=== PATIENT | male | born 1965 | race Caucasian/White ===

== ENCOUNTER 2019-02-03 11:27 | Inpatient (IN) | payer OTHER ==
[2019-02-03] MEDS ORDERED: NITROGLYCERIN SL TABS 0.4 MG TAB SUBLINGUAL STA ×2 (11:52)
[2019-02-03] MEDS ORDERED: NITROGLYCERIN OINT 1 INCH/GM PACKET TOPICAL STA (11:52)
--- NOTE | 2019-02-03 11:55 | ED ---
General Adult HPI - General Chief complaint: Chest Pain Stated complaint: Chest pain Time Seen by Provider: 02/03/19 11:35 Source: patient, EMS, RN notes reviewed Mode of arrival: EMS Limitations: no limitations - History of Present Illness Initial comments: This is a 53-year-old male with a past medical history significant for hypertension and a family history of heart disease. Patient states over the last months she's noticed she's been a little bit more short of breath but over the last week even walking to the mailbox makes him short of breath. Patient states he woke up today with some significant chest tightness radiating to his right arm. He was also short of breath at that time. Patient states that lasted for about 2 hours and then it is gotten considerably better but not completely gone away. Patient denies any recent fever chills or cough. Patient denies any palpitations. Patient denies any lightheadedness dizziness or near s yncopal episode. Patient denies headache patient denies numbness weakness. Patient denies any abdominal pain. Patient denies nausea vomiting diarrhea. Patient denies any calf pain or leg swelling. Patient denies any recent travel trips or long rides in a car. - Related Data Allergies Allergy/AdvReac Type Severity Reaction Status Date / Time No Known Allergies Allergy Verified 02/03/19 11:40 Review of Systems ROS Statement: Those systems with pertinent positive or pertinent negative responses have been documented in the HPI. ROS Other: All systems not noted in ROS Statement are negative. Past Medical History Past Medical History: Hypertension History of Any Multi-Drug Resistant Organisms: None Reported Past Surgical History: Tonsillectomy Additional Past Surgical History / Comment(s): "U triple P" for sleep apnea Past Psychological History: No Psychological Hx Reported Smoking Status: Never smoker Past Alcohol Use History: Occasional Past Drug Use History: None Reported General Exam - General Exam Comments Initial Comments: GENERAL: Patient is well-developed and well-nourished. Patient is nontoxic and well- hydrated and is in mild distress. ENT: Neck is soft and supple. No significant lymphadenopathy is noted. Oropharynx is clear. Moist mucous membranes. Neck has full range of motion without eliciting any pain. EYES: The sclera were anicteric and conjunctiva were pink and moist. Extraocular movements were intact and pupils were equal round and reactive to light. Eyelids were unremarkable. PULMONARY: Unlabored respirations. Good breath sounds bilaterally. No audible rales rhonchi or wheezing was noted. CARDIOVASCULAR: There is a regular rate and rhythm without any murmurs gallops or rubs. ABDOMEN: Soft and nontender with normal bowel sounds. SKIN: Skin is clear with no lesions or rashes and otherwise unremarkable. NEUROLOGIC: Patient is alert and oriented x3. Cranial nerves II through XII are grossly intact. Motor and sensory are also intact. Normal speech, volume and content. Symmetrical smile. MUSCULOSKELETAL: Normal extremities with adequate strength and full range of motion. No lower extremity swelling or edema. No calf tenderness. LYMPHATICS: No significant lymphadenopathy is noted PSYCHIATRIC: Normal psychiatric evaluation. Limitations: no limitations Course Vital Signs 02/03/19 02/03/19 02/03/19 11:34 11:37 11:45 Temperature 97.4 F L Pulse Rate 60 55 L Respiratory 16 11 L Rate Blood Pressure 179/112 179/112 O2 Sat by Pulse 97 98 98 Oximetry 02/03/19 02/03/19 12:00 12:15 Temperature Pulse Rate 65 70 Respiratory 13 16 Rate Blood Pressure 187/102 156/105 O2 Sat by Pulse 96 95 Oximetry Medical Decision Making - Medical Decision Making EKG shows sinus bradycardia 57 bpm AK interval is 164 QRS 76 QT interval 4:30 QTC is 426. Patient's EKG shows no ST segment elevation or depression or T wave abnormalities are noted. Patient states the nitroglycerin sublingual did help his chest pain and he is in no discomfort currently. I started heparin on the patient because of his symptoms. I spoke with Dr. see he agreed to admit the patient admitted the patient wrote admitting orders and consult cardiology. I continue the heparin and aspirin and Nitropaste on the floor. - Lab Data Result diagrams: 02/03/19 11:47 02/03/19 11:47 Lab Results 02/03/19 02/03/19 02/03/19 Range/Units 11:47 11:47 11:47 WBC 5.3 (3.8-10.6) k/uL RBC 5.03 (4.30-5.90) m/uL Hgb 16.3 (13.0-17.5) gm/dL Hct 48.1 (39.0-53.0) % MCV 95.7 (80.0-100.0) fL MCH 32.4 (25.0-35.0) pg MCHC 33.9 (31.0-37.0) g/dL RDW 12.9 (11.5-15.5) % Plt Count 246 (150-450) k/uL Neutrophils % 58 % Lymphocytes % 25 % Monocytes % 7 % Eosinophils % 7 % Basophils % 1 % Neutrophils # 3.1 (1.3-7.7) k/uL Lymphocytes # 1.3 (1.0-4.8) k/uL Monocytes # 0.4 (0-1.0) k/uL Eosinophils # 0.4 (0-0.7) k/uL Basophils # 0.1 (0-0.2) k/uL PT 10.3 (9.0-12.0) sec INR 1.0 (<1.2) APTT 25.3 (22.0-30.0) sec D-Dimer 0.23 (<0.60) mg/L FEU Sodium 140 (137-145) mmol/L Potassium 4.1 (3.5-5.1) mmol/L Chloride 107 (98-107) mmol/L Carbon Dioxide 23 (22-30) mmol/L Anion Gap 10 mmol/L BUN 12 (9-20) mg/dL Creatinine 0.75 (0.66-1.25) mg/dL Est GFR (CKD-EPI)AfAm >90 (>60 ml/min/1.73 sqM) Est GFR (CKD-EPI)NonAf >90 (>60 ml/min/1.73 sqM) Glucose 118 H (74-99) mg/dL Calcium 9.1 (8.4-10.2) mg/dL Magnesium 2.2 (1.6-2.3) mg/dL Total Bilirubin 0.9 (0.2-1.3) mg/dL AST 42 (17-59) U/L ALT 79 H (21-72) U/L Alkaline Phosphatase 64 (38-126) U/L Troponin I (0.000-0.034) ng/mL NT-Pro-B Natriuret Pep pg/mL Total Protein 6.8 (6.3-8.2) g/dL Albumin 4.7 (3.5-5.0) g/dL 06/13/19 06/13/19 Range/Units 11:47 11:47 WBC (3.8-10.6) k/uL RBC (4.30-5.90) m/uL Hgb (13.0-17.5) gm/dL Hct (39.0-53.0) % MCV (80.0-100.0) fL MCH (25.0-35.0) pg MCHC (31.0-37.0) g/dL RDW (11.5-15.5) % Plt Count (150-450) k/uL Neutrophils % % Lymphocytes % % Monocytes % % Eosinophils % % Basophils % % Neutrophils # (1.3-7.7) k/uL Lymphocytes # (1.0-4.8) k/uL Monocytes # (0-1.0) k/uL Eosinophils # (0-0.7) k/uL Basophils # (0-0.2) k/uL PT (9.0-12.0) sec INR (<1.2) APTT (22.0-30.0) sec D-Dimer (<0.60) mg/L FEU Sodium (137-145) mmol/L Potassium (3.5-5.1) mmol/L Chloride (98-107) mmol/L Carbon Dioxide (22-30) mmol/L Anion Gap mmol/L BUN (9-20) mg/dL Creatinine (0.66-1.25) mg/dL Est GFR (CKD-EPI)AfAm (>60 ml/min/1.73 sqM) Est GFR (CKD-EPI)NonAf (>60 ml/min/1.73 sqM) Glucose (74-99) mg/dL Calcium (8.4-10.2) mg/dL Magnesium (1.6-2.3) mg/dL Total Bilirubin (0.2-1.3) mg/dL AST (17-59) U/L ALT (21-72) U/L Alkaline Phosphatase (38-126) U/L Troponin I <0.012 (0.000-0.034) ng/mL NT-Pro-B Natriuret Pep 48 pg/mL Total Protein (6.3-8.2) g/dL Albumin (3.5-5.0) g/dL Critical Care Time Critical Care Time: Yes Total Critical Care Time: 35 Disposition Clinical Impression: Hypertensive urgency Disposition: ADMITTED IP TO THIS HOSP Referrals: [facility] [Primary Care Provider] - 1-2 days Time of Disposition: 13:05
[2019-02-03 12:07] LABS: Basophils # (A) 0.1 k/uL (0-0.2); Basophils % (A) 1 %; Eosinophils # (A) 0.4 k/uL (0-0.7); Eosinophils % (A) 7 %; HCT 48.1 % (39.0-53.0); HGB 16.3 gm/dL (13.0-17.5); Lymphocytes # (A) 1.3 k/uL (1.0-4.8); Lymphocytes % (A) 25 %; MCH 32.4 pg (25.0-35.0); MCHC 33.9 g/dL (31.0-37.0); MCV 95.7 fL (80.0-100.0); Mean Platelet Volume 7.5; Monocytes # (A) 0.4 k/uL (0-1.0); Monocytes % (A) 7 %; Neutrophils # (A) 3.1 k/uL (1.3-7.7); Neutrophils % (A) 58 %; Platelet Count 246 k/uL (150-450); RBC 5.03 m/uL (4.30-5.90); RDW 12.9 % (11.5-15.5); WBC 5.3 k/uL (3.8-10.6)
[2019-02-03 12:21] LABS: D-Dimer 0.23 mg/L FEU (<0.60); Partial Thromboplastin Time 25.3 sec (22.0-30.0); Prothrombin Time 10.3 sec (9.0-12.0)
[2019-02-03 12:29] LABS: ALT 79 U/L (21-72); AST 42 U/L (17-59); African American GFR (CKD) >90 (>60 ml/min/1.73 sqM); Albumin 4.7 g/dL (3.5-5.0); Alkaline Phosphatase 64 U/L (38-126); Anion Gap 10 mmol/L; Blood Urea Nitrogen 12 mg/dL (9-20); Calcium 9.1 mg/dL (8.4-10.2); Carbon Dioxide 23 mmol/L (22-30); Chloride 107 mmol/L (98-107); Glucose 118 mg/dL (74-99); Magnesium 2.2 mg/dL (1.6-2.3); Potassium 4.1 mmol/L (3.5-5.1); Sodium 140 mmol/L (137-145); Total Bilirubin 0.9 mg/dL (0.2-1.3); Total Protein 6.8 g/dL (6.3-8.2)
--- NOTE | 2019-02-03 12:57 | XR ---
EXAMINATION TYPE: XR chest 2V DATE OF EXAM: 02/03/2019 COMPARISON: Chest x-ray July 26, 2015. HISTORY: Chest pain and shortness of breath. TECHNIQUE: Frontal and lateral views of the chest are obtained. FINDINGS: There is no focal air space opacity, pleural effusion, or pneumothorax seen. The cardiac silhouette size is stable and mildly enlarged. The osseous structures are intact. IMPRESSION: Mild cardiomegaly without acute pulmonary process. No significant change from prior.
[2019-02-03] MEDS ORDERED: HEPARIN SODIUM,PORCINE 5,000 UNIT/ML 1 ML VIAL IV ONE (13:04)
[2019-02-03] MEDS ORDERED: NITROGLYCERIN SL TABS 0.4 MG TAB SUBLINGUAL PRN (13:06)
[2019-02-03] MEDS: HEPARIN SOD,PORK IN 0.45% NACL 25,000 UNIT in 0.45% NACL 1 250ML.BAG IV SCH (13:32)
--- NOTE | 2019-02-03 15:44 | P.HPIM ---
History of Present Illness This is a pleasant 53 years old male with past medical history of hypertension, no diabetes. No previous history of heart disease. He never smoked. He presents because of dyspnea of 2 weeks duration associated with chest tightness, there this morning at 1:00 and 5:00 in the morning he has central chest pain that wakes him up from sleep, chest pain was nonradiating about it/10 in severity, now down to 3-4/10 after treatment. The pain is nonspecific. Patient denies history of smoking, drinks beers patient only had no illicit drugs. His father had cardiac disease at a similar age and his 50s On admission patient was hypertensive up to 187/1 or 2, currently blood pressure 126/83. Heart rate is 59-61. Saturating 94% on room air and his febrile. CBC and BMP were unremarkable, liver enzymes is only slightly elevated at ALT 79, rest of labs are unremarkable, he has negative troponin. EKG showing sinus bradycardia at 57 BPM with no significant ST-T changes. On admission patient got nitroglycerin ointment and sublingual nitroglycerin and he was started on heparin drip. Also patient was started on aspirin Review of Systems CONSTITUTIONAL: No fever, no malaise, no fatigue. HEENT: No recent visual problems or hearing problems. Denied any sore throat. CARDIOVASCULAR: No orthopnea, PND, no palpitations, no syncope. PULMONARY: No shortness of breath, no cough, no hemoptysis. GASTROINTESTINAL: No diarrhea, no nausea, no vomiting, no abdominal pain. Normoactive bowel sounds. NEUROLOGICAL: No headaches, no weakness, no numbness. HEMATOLOGICAL: Denies any bleeding or petechiae. GENITOURINARY: Denies any burning micturition, frequency, or urgency. MUSCULOSKELETAL/RHEUMATOLOGICAL: Denies any joint pain, swelling, or any muscle pain. ENDOCRINE: Denies any polyuria or polydipsia. Past Medical History Past Medical History: Hypertension History of Any Multi-Drug Resistant Organisms: None Reported Past Surgical History: Tonsillectomy Additional Past Surgical History / Comment(s): "U triple P" for sleep apnea Past Psychological History: No Psychological Hx Reported Smoking Status: Never smoker Past Alcohol Use History: Occasional Past Drug Use History: None Reported - Past Family History Mother Family Medical History: Cancer Additional Family Medical History / Comment(s): lung CA with thoracotomy Father Family Medical History: Myocardial Infarction (CA) Additional Family Medical History / Comment(s): passed in 2007 Medications and Allergies Home Medications Medication Instructions Recorded Confirmed Type Niacin 500 mg PO DAILY 02/03/19 02/03/19 History Vitamin B Complex 1 cap PO DAILY 02/03/19 02/03/19 History Allergies Allergy/AdvReac Type Severity Reaction Status Date / Time No Known Allergies Allergy Verified 02/03/19 13:35 Physical Exam Vitals: Vital Signs Temp Pulse Pulse Resp BP BP Pulse Ox 02/03/19 15:10 59 L 16 02/03/19 15:07 59 L 16 140/85 94 L 02/03/19 13:30 60 11 L 126/83 97 02/03/19 13:28 61 16 126/83 97 02/03/19 12:30 156/105 02/03/19 12:15 70 16 156/105 95 02/03/19 12:00 65 13 187/102 96 02/03/19 11:45 55 L 11 L 179/112 98 02/03/19 11:37 98 02/03/19 11:34 97.4 F L 60 16 179/112 97 Intake and Output 02/03/19 02/03/19 02/03/19 06:59 14:59 22:59 Other: Weight 113.398 kg GENERAL: The patient is alert and oriented x3, not in any acute distress. Well developed, well nourished. HEENT: Pupils are round and equally reacting to light. EOMI. No scleral icterus. No conjunctival pallor. Normocephalic, atraumatic. No pharyngeal erythema. No thyromegaly. CARDIOVASCULAR: S1 and S2 present. No murmurs, rubs, or gallops. PULMONARY: Chest is clear to auscultation, no wheezing or crackles. ABDOMEN: Soft, nontender, nondistended, normoactive bowel sounds. No palpable organomegaly. MUSCULOSKELETAL: No joint swelling or deformity. EXTREMITIES: No cyanosis, clubbing, or pedal edema. NEUROLOGICAL: Gross neurological examination did not reveal any focal deficits. SKIN: No rashes. Results CBC & Chem 7: 02/03/19 11:47 02/03/19 11:47 Labs: Abnormal Lab Results - Last 24 Hours (Table) 02/03/19 Range/Units 11:47 Glucose 118 H (74-99) mg/dL ALT 79 H (21-72) U/L Thrombosis Risk Factor Assmnt - Choose All That Apply Each Factor Represents 1 point: Age 41-60 years, Obesity (BMI >25) Each Risk Factor Represents 3 Points: Family history of DVT/PE Thrombosis Risk Factor Assessment Total Risk Factor Score: 5 Thrombosis Risk Factor Assessment Level: High Risk Assessment and Plan Assessment: Dyspnea and chest pain, possible unstable angina. Patient is on heparin drip Uncontrolled hypertension Family history of heart disease Mildly elevated liver enzymes Plan: This is a pleasant 53 years old male who presents with unstable angina. Continue with heparin drip. Serial troponins. Follow-up with cardiology consult. Labs and medication were reviewed.. Continue same treatment. Continue with symptomatic treatment. Resume home medication. Monitor lytes and vitals. DVT and GI prophylaxis. Further recommendations of the clinical course of the patient DVT prophylaxis: heparin GI Prophylaxis: Pepcid Prognosis is guarded
[2019-02-03] MEDS: NITROGLYCERIN OINT 1 INCH/GM PACKET TOPICAL SCH ×2 (17:15→23:09)
[2019-02-03] MEDS ORDERED: ONDANSETRON 4 MG/2 ML VIAL IVP PRN (18:27)
[2019-02-03] MEDS: FAMOTIDINE 20 MG/2 ML VIAL IV SCH (19:53)
[2019-02-04 03:25] LABS: Cholesterol 216 mg/dL (<200); HDL Cholesterol 45 mg/dL (40-60); LDL Cholesterol,Calculated 135 mg/dL (0-99); Triglycerides 179 mg/dL (<150)
[2019-02-04] MEDS: NITROGLYCERIN OINT 1 INCH/GM PACKET TOPICAL SCH ×3 (05:13→23:02)
[2019-02-04] MEDS: FAMOTIDINE 20 MG/2 ML VIAL IV SCH ×3 (08:01→20:35)
[2019-02-04] MEDS: ASPIRIN 325 MG TAB PO SCH (08:01)
[2019-02-04 08:21] LABS: Basophils # (A) 0.1 k/uL (0-0.2); Basophils % (A) 1 %; Eosinophils # (A) 0.4 k/uL (0-0.7); Eosinophils % (A) 6 %; HCT 49.2 % (39.0-53.0); HGB 16.2 gm/dL (13.0-17.5); Lymphocytes # (A) 1.3 k/uL (1.0-4.8); Lymphocytes % (A) 19 %; MCH 32.2 pg (25.0-35.0); MCHC 32.9 g/dL (31.0-37.0); MCV 97.9 fL (80.0-100.0); Mean Platelet Volume 7.3; Monocytes # (A) 0.4 k/uL (0-1.0); Monocytes % (A) 6 %; Neutrophils # (A) 4.6 k/uL (1.3-7.7); Neutrophils % (A) 67 %; Platelet Count 241 k/uL (150-450); RBC 5.02 m/uL (4.30-5.90); RDW 12.9 % (11.5-15.5); WBC 6.9 k/uL (3.8-10.6)
[2019-02-04 08:26] LABS: African American GFR (CKD) >90 (>60 ml/min/1.73 sqM); Anion Gap 7 mmol/L; Blood Urea Nitrogen 13 mg/dL (9-20); Calcium 9.3 mg/dL (8.4-10.2); Carbon Dioxide 26 mmol/L (22-30); Chloride 107 mmol/L (98-107); Glucose 125 mg/dL (74-99); Potassium 4.2 mmol/L (3.5-5.1); Sodium 140 mmol/L (137-145)
[2019-02-04] MEDS ORDERED: SODIUM CHLORIDE 0.9% IV ONE (09:12)
[2019-02-04] MEDS ORDERED: CAFFEINE CITRATE 60 MG/3 ML VIAL IV PRN (09:12)
[2019-02-04] MEDS ORDERED: DIPYRIDAMOLE IV ONE (09:12)
[2019-02-04] MEDS ORDERED: AMINOPHYLLINE 500 MG/20 ML VIAL IV PRN (09:12)
--- NOTE | 2019-02-04 12:16 | NM ---
EXAMINATION TYPE: NM stress persantine cardiolit DATE OF EXAM: 02/04/2019 COMPARISON: NONE HISTORY: Shortness of breath and chest pain TECHNIQUE: After the intravenous administration of 10.4 mCi Tc 99m Sestamibi - Cardiolite resting SP ECT images acquired 45 minutes post injection. The patient received 63 mg Persantine, 24.6 mCi Tc 99m Sestamibi - Stress images obtained 45 minutes post injection FINDINGS: Review of stress and rest SPECT images demonstrates decreased residual uptake along anterior wall, an terolateral left ventricle on stress as compared to rest images. Gated analysis shows normal wall mo tion with an estimated left ventricular ejection fraction of 59 %. IMPRESSION: Pharmacologically induced left ventricular myocardial ischemia.
[2019-02-04] MEDS: HEPARIN SOD,PORK IN 0.45% NACL 25,000 UNIT in 0.45% NACL 1 250ML.BAG IV SCH ×2 (13:39→16:41)
--- NOTE | 2019-02-04 14:14 | EST ---
EXERCISE STRESS AGE: 53 SEX: M HT: 72" WT: 243 PROTOCOL: Persantine Cardiolite Stress Test HEART RATE REST: 60 BLOOD PRESSURE REST: 156/96 MAXIMUM HEART RATE ACHIEVED: 87 MAXIMUM BLOOD PRESSURE: 181/89 85% MPHR: 141 100% MPHR: 166 INDICATIONS: Chest pain. CLINICAL INFORMATION: Baseline rhythm is sinus mechanism, rate of 60, normal axis and intervals, nonspecific ST-T wave changes. Baseline blood pressure 156/96 mmHg. Patient received an infusion of dipyridamole. Electrocardiograph monitoring revealed no evidence of diagnostic ischemic ST deviation. Cardiolite was injected per protocol. CONCLUSION: 1. Nondiagnostic electrocardiographic stress response to dipyridamole infusion with occasional premature ventricular contractions. 2. Nuclear images will be reported separately. MMODL / IJN: [id number] /
--- NOTE | 2019-02-04 14:34 | P.PN ---
Subjective This is a pleasant 53 years old male with past medical history of hypertension, no diabetes. No previous history of heart disease. He never smoked. He presents because of dyspnea of 2 weeks duration associated with chest tightness, there this morning at 1:00 and 5:00 in the morning he has central chest pain that wakes him up from sleep, chest pain was nonradiating about it/10 in severity, now down to 3-4/10 after treatment. The pain is nonspecific. Patient denies history of smoking, drinks beers patient only had no illicit drugs. His father had cardiac disease at a similar age and his 50s On admission patient was hypertensive up to 187/1 or 2, currently blood pressure 126/83. Heart rate is 59-61. Saturating 94% on room air and his febrile. CBC and BMP were unremarkable, liver enzymes is only slightly elevated at ALT 79, rest of labs are unremarkable, he has negative troponin. EKG showing sinus bradycardia at 57 BPM with no significant ST-T changes. On admission patient got nitroglycerin ointment and sublingual nitroglycerin and he was started on heparin drip. Also patient was started on aspirin 02/04/2019 Patient feels better as with no chest pain or dyspnea. No other complaint. Patient has been evaluated by cardiology team and he underwent echocardiogram and stress test. Stress test was nondiagnostic, However nuclear stress present in stress test showing pharmacologically interviewed left ventricular myocardial ischemia along the anterior wall and anterior lateral left ventricle. As per test his estimated ejection fraction is 59%. CBC and BMP were unremarkable. 3 cardiac enzymes and troponin were negative. Further recommendation as per cardiology team. Review of systems CONSTITUTIONAL: No fever, no malaise, no fatigue. HEENT: No recent visual problems or hearing problems. Denied any sore throat. CARDIOVASCULAR: No orthopnea, PND, no palpitations, no syncope. PULMONARY: No shortness of breath, no cough, no hemoptysis. GASTROINTESTINAL: No diarrhea, no nausea, no vomiting, no abdominal pain. Normoactive bowel sounds. NEUROLOGICAL: No headaches, no weakness, no numbness. HEMATOLOGICAL: Denies any bleeding or petechiae. GENITOURINARY: Denies any burning micturition, frequency, or urgency. MUSCULOSKELETAL/RHEUMATOLOGICAL: Denies any joint pain, swelling, or any muscle pain. ENDOCRINE: Denies any polyuria or polydipsia. Indication: Aspirin 325 mg, Pepcid 20 mg, heparin drip at 9.8 mL per hour, nitroglycerin 1 inch topical and Nitrostat 0.5 mg, Zofran 4 mg. Objective - Vital Signs Vital signs: Vital Signs Temp 98.4 F 02/04/19 07:56 Pulse 62 02/04/19 07:56 Resp 18 02/04/19 07:56 BP 156/97 02/04/19 07:56 Pulse Ox 97 02/04/19 07:56 Intake & Output 02/03/19 02/04/19 02/04/19 18:59 06:59 18:59 Intake Total 128.258 91.107 Balance 128.258 91.107 Weight 113.398 kg 110.6 kg 110.6 kg Intake: Intake, IV Titration 128.258 91.107 Amount Heparin Sod,Pork in 0.45% 128.258 91.107 NaCl 25,000 unit In 0.45 % NaCl 1 250ml.bag @ 8.7 UNITS/KG/HR 9.866 mls/hr IV .Q24H [facility] Rx#: [id number] Other: # Voids 1 - Exam GENERAL: The patient is alert and oriented x3, not in any acute distress. Well developed, well nourished. HEENT: Pupils are round and equally reacting to light. EOMI. No scleral icterus. No conjunctival pallor. Normocephalic, atraumatic. No pharyngeal erythema. No thyromegaly. CARDIOVASCULAR: S1 and S2 present. No murmurs, rubs, or gallops. PULMONARY: Chest is clear to auscultation, no wheezing or crackles. ABDOMEN: Soft, nontender, nondistended, normoactive bowel sounds. No palpable organomegaly. MUSCULOSKELETAL: No joint swelling or deformity. EXTREMITIES: No cyanosis, clubbing, or pedal edema. NEUROLOGICAL: Gross neurological examination did not reveal any focal deficits. SKIN: No rashes. - Labs CBC & Chem 7: 02/04/19 07:20 02/04/19 07:20 Labs: Abnormal Lab Results - Last 24 Hours (Table) 02/03/19 02/03/19 02/04/19 Range/Units 11:47 18:35 01:10 APTT 35.6 H 30.9 H (22.0-30.0) sec Glucose (74-99) mg/dL Triglycerides 179 H (<150) mg/dL Cholesterol 216 H (<200) mg/dL LDL Cholesterol, Calc 135 H (0-99) mg/dL 02/04/19 02/04/19 Range/Units 07:20 07:20 APTT 37.7 H (22.0-30.0) sec Glucose 125 H (74-99) mg/dL Triglycerides (<150) mg/dL Cholesterol (<200) mg/dL LDL Cholesterol, Calc (0-99) mg/dL Assessment and Plan Assessment: Dyspnea and chest pain, possible unstable angina. Stress test showing anterior wall and anterior lateral left ventricular ischemia Uncontrolled hypertension, improving Family history of heart disease Mildly elevated liver enzymes Plan: This is a pleasant 53 years old male who presents with unstable angina. Continue with heparin drip. Serial troponins. Follow-up with cardiology consult Recommendation. Labs and medication were reviewed.. Continue same treatment. Continue with symptomatic treatment. Resume home medication. Monitor lytes and vitals. DVT and GI prophylaxis. Further recommendations of the clinical course of the patient DVT prophylaxis: heparin GI Prophylaxis: Pepcid Prognosis is guarded
[2019-02-04] MEDS ORDERED: amLODIPine 5 MG TAB PO STA (16:59)
[2019-02-04] MEDS: METOPROLOL TARTRATE 25 MG TAB PO SCH (20:35)
[2019-02-04] MEDS: SODIUM CHLORIDE 0.9% 1,000 ML IV SCH (21:45)
[2019-02-05] MEDS: HEPARIN SOD,PORK IN 0.45% NACL 25,000 UNIT in 0.45% NACL 1 250ML.BAG IV SCH (01:09)
[2019-02-05] MEDS: NITROGLYCERIN OINT 1 INCH/GM PACKET TOPICAL SCH (06:10)
[2019-02-05] MEDS: METOPROLOL TARTRATE 25 MG TAB PO SCH ×2 (06:16→21:18)
[2019-02-05] MEDS: FAMOTIDINE 20 MG/2 ML VIAL IV SCH ×2 (06:16→21:18)
[2019-02-05] MEDS: ASPIRIN 325 MG TAB PO SCH (06:16)
[2019-02-05] MEDS: SODIUM CHLORIDE 0.9% 1,000 ML IV SCH (06:16)
[2019-02-05] MEDS ORDERED: IV FLUID CONTINUATION 1,000 ML IV ONE (09:00)
[2019-02-05] MEDS ORDERED: fentaNYL (PF) 50 MCG/ML 2 ML AMP ONE (09:07)
[2019-02-05] MEDS ORDERED: VERAPAMIL 2.5 MG/ML 2 ML AMP ONE (09:07)
[2019-02-05] MEDS ORDERED: fentaNYL (PF) 50 MCG/ML 2 ML AMP IVP ONE (09:19)
[2019-02-05] MEDS ORDERED: MIDAZOLAM (PF) 2 MG/2 ML VIAL IVP ONE (09:19)
[2019-02-05] MEDS ORDERED: LIDOCAINE 2% SYG (PF) 100 MG/5 ML MISCELLANE ONE (09:24)
[2019-02-05] MEDS ORDERED: HEPARIN SODIUM 1,000 UN/ML (10ML VL) ONE (09:26)
[2019-02-05] MEDS ORDERED: VERAPAMIL SYRINGE (5 MG/10 ML) INTRAARTER ONE (09:27)
[2019-02-05] MEDS ORDERED: HEPARIN SODIUM 1,000 UN/ML (10ML VL) IV ONE (09:27)
[2019-02-05] MEDS ORDERED: hydrALAZINE HCL 20 MG/ML 1 ML VIAL ONE (09:41)
[2019-02-05] MEDS ORDERED: PRASUGREL 10 MG TAB ONE (09:43)
[2019-02-05] MEDS ORDERED: hydrALAZINE HCL 20 MG/ML 1 ML VIAL IVP ONE (09:45)
[2019-02-05] MEDS ORDERED: PRASUGREL 10 MG TAB PO ONE (09:46)
[2019-02-05] MEDS ORDERED: BIVALIRUDIN BOLUS 250 MG/50 ML IV ONE (09:52)
[2019-02-05] MEDS ORDERED: BIVALIRUDIN 250 MG in SODIUM CHLORIDE 0.9% 50 ML IV ONE (09:53)
[2019-02-05] MEDS ORDERED: IOPAMIDOL-370 125ML BTL INJ ONE (10:02)
[2019-02-05] MEDS: NITROGLYCERIN 1000MCG/10ML SYRINGE INTRACORON ONE ×2 (10:06→10:16)
[2019-02-05] MEDS ORDERED: IOPAMIDOL-370 100ML BTL INJ ONE (10:25)
[2019-02-05] MEDS ORDERED: MAG HYDROX/AL HYDROX/SIMETH 30 ML CUP PO PRN (10:34)
[2019-02-05] MEDS ORDERED: ATROPINE SULFATE 0.1 MG/ML 10ML SYRINGE IV PRN (10:34)
[2019-02-05] MEDS ORDERED: RX INFO: IV CONTRAST WAS GIVEN 1 EACH MISC MISCELLANE PRN (10:34)
[2019-02-05] MEDS ORDERED: ZOLPIDEM 5 MG TAB PO PRN (10:34)
[2019-02-05] MEDS ORDERED: NITROGLYCERIN SL TABS 0.4 MG TAB SUBLINGUAL PRN (10:34)
[2019-02-05] MEDS ORDERED: SODIUM CHLORIDE 0.9% 1,000 ML IV SCH (10:45)
--- NOTE | 2019-02-05 11:08 | PTCA ---
PERCUTANEOUSTRANS CORORONARY ANGIOGRAPHY Mr. Holman is a 53-year-old male who presented with symptoms of unstable angina, was evaluated by Dr. Suggs, underwent a stress test that revealed evidence of inducible ischemia involving the inferolateral wall. In view of that, he underwent cardiac catheterization, was found to have critical stenosis involving the first obtuse marginal branch in the mid left circumflex as well as the first diagonal branch. In view of that, recommendation was made regarding angioplasty and stenting. The procedure, its risks and complications were discussed with the patient, who was in full understanding and agreement. PROCEDURE DESCRIPTION: A 6-Armenian FL3.5 guiding catheter was introduced in the system. After cannulating the left main, a 0.014 balanced medium-weight J-wire was advanced into the mid left circumflex first obtuse marginal branch and positioned in the distal vessel. Subsequently a 3.5 x 15 mm Xience Marisabel stent was advanced, deployed and post dilated at 14 atmospheres. Following that, the balloon was removed and another wire was advanced in the first diagonal branch and positioned in the distal diagonal branch. Subsequently a 2.25 x 12 mm Trek balloon was advanced. One inflation at 8 atmospheres was done. Following that, the balloon was removed and a 2.5 x 15 mm Xience Marisabel stent was deployed and post dilated at 14 atmospheres. After the last inflation, after appropriate wait, the balloon and the guidewire were withdrawn back into the guiding catheter. Images were obtained and repeated. Those images revealed stable and successful stenting. At that point, the guiding catheter, the balloon and the guidewire wire were removed. The sheath was removed. Hemostasis was obtained with deployment of a TR band. There was no immediate complication. Of note, the patient had chest discomfort and EKG changes with inflation that resolved at the end of the procedure. He received Angiomax per protocol as well as oral loading dose of Effient. RESULTS: 1. Successful stenting of the first obtuse marginal branch and mid left circumflex with reduction of stenosis from 90% to 0%. 2. Successful stenting of the first diagonal branch with reduction of stenosis from 99% to 0%. RECOMMENDATIONS: Patient will be continued on aspirin, Effient and statin. The importance of dual antiplatelet treatment was discussed with the patient and his family, and they are in full understanding and agreement. Duration of procedure was 29 minutes. MMODL / IJN: [id number] /
--- NOTE | 2019-02-05 16:53 | P.PN ---
Subjective Progress Note Date: 02/05/19 53 years old male with past medical history of hypertension, no diabetes. No previous history of heart disease. He never smoked. He presents because of dyspnea of 2 weeks duration associated with chest tightness, there this morning at 1:00 and 5:00 in the morning he has central chest pain that wakes him up from sleep, chest pain was nonradiating about it/10 in severity, now down to 3-4/10 after treatment. The pain is nonspecific. Patient denies history of smoking, drinks beers patient only had no illicit drugs. His father had cardiac disease at a similar age and his 50s 02/05/2019 Patient is seen and evaluated in room at bedside; denies any specific complaints Patient is status post cardiac catheterization with successful stenting of the first 2 was marginal branch and mid left circumflex with reduction of stenosis from 90-0%; stenting of first diagonal branch with reduction of stenosis from 99-0% Cardiology is recommending to continue aspirin, statins and Effient Objective - Vital Signs Vital signs: Vital Signs Temp 97.7 F 02/05/19 04:10 Pulse 57 L 02/05/19 10:49 Resp 18 02/05/19 10:49 BP 152/89 02/05/19 10:49 Pulse Ox 96 02/05/19 10:49 Intake & Output 02/04/19 02/05/19 02/05/19 18:59 06:59 18:59 Intake Total 241.742 279.175 411.4 Output Total 500 Balance 241.742 279.175 -88.6 Weight 110.6 kg 109.7 kg Intake: IV 287 Intake, IV Titration 121.742 159.175 124.4 Amount Heparin Sod,Pork in 0.45% 121.742 159.175 124.4 NaCl 25,000 unit In 0.45 % NaCl 1 250ml.bag @ 8.7 UNITS/KG/HR 9.866 mls/hr IV .Q24H CATHERINE Rx#: [id number] Oral 120 120 Output: Urine 500 Other: Voiding Method Toilet # Voids 1 - Exam - Constitutional General appearance: Present: average body habitus, cooperative, no acute distress - EENT Eyes: Present: anicteric sclerae, EOMI, PERRLA, normal appearance ENT: Present: hearing grossly normal, normal oropharynx Ears: bilateral: normal - Neck Neck: Present: normal ROM. Absent: lymphadenopathy, rigidity, thyromegaly Carotids: negative: bruit present Thyroid: bilateral: normal size, negative: enlarged, nodule - Respiratory Respiratory: bilateral: CTA, negative: rales, rhonchi, wheezing - Cardiovascular Rhythm: regular Heart sounds: normal: S1, S2 Abnormal Heart Sounds: Absent: systolic murmur, diastolic murmur - Gastrointestinal General gastrointestinal: Present: normal bowel sounds, soft. Absent: distended, organomegaly, tenderness - Genitourinary Genitourinary Comment(s): deferred - Integumentary Integumentary: Present: normal turgor. Absent: jaundiced, rash, ulcer - Neurologic Neurologic: Present: CNII-XII intact. Absent: focal deficits - Musculoskeletal Musculoskeletal: Present: gait normal, strength equal bilaterally - Psychiatric Psychiatric: Present: A&O x's 3, appropriate affect, intact judgment & insight - Labs CBC & Chem 7: 02/04/19 07:20 02/04/19 07:20 Labs: Abnormal Lab Results - Last 24 Hours (Table) 02/04/19 02/04/19 02/05/19 Range/Units 14:54 22:00 06:21 APTT 35.1 H 62.2 H 88.9 H (22.0-30.0) sec Assessment and Plan Assessment: Dyspnea and chest pain, possible unstable angina. Stress test showing anterior wall and anterior lateral left ventricular ischemia Uncontrolled hypertension, improving Family history of heart disease Mildly elevated liver enzymes Plan: This is a pleasant 53 years old male who presents with unstable angina. Continue with heparin drip. Serial troponins. Follow-up with cardiology consult Recommendation. Labs and medication were reviewed.. Continue same treatment. Continue with symptomatic treatment. Resume home medication. Monitor lytes and vitals. DVT and GI prophylaxis. Further recommendations of the clinical course of the patient DVT prophylaxis: heparin GI Prophylaxis: Pepcid Time with Patient: Greater than 30
--- NOTE | 2019-02-05 18:14 | P.CARDCATH ---
Date of Procedure: 02/05/19 Description of Procedure: HISTORY: This is a 53-year-old gentleman who was admitted to the hospital with exertional shortness of breath and chest pains. Nuclear stress test was size to ischemia involving the anterior and also circumflex distribution. Patient is advised to have a cardiac catheterization CONSENT:I have discussed the risks, benefits and alternative therapies for the above-mentioned procedure and for both sedation/analgesia as well as necessary blood product administration, if indicated, as they pertain to this patient. The patient has indicated understanding and acceptance of the risks and procedures discussed. PROCEDURE: Patient was brought to the lab in a fasting state. Patient was given some IV sedation. The right wrist is infiltrated with lidocaine and right radial artery was entered using Seldinger technique. A 6-Kyrgyz catheter was left in place and selective coronary arteriography was performed. Patient tolerated the procedure well. He had been was applied for hemostasis. Patient went on to have stent placement of the diagonal and also circumflex by Dr. El worrell. Conscious Sedation: Versed 1mg Fentanyl 50 g Duration 20 minutes HEMODYNAMICS: Aortic pressure was about 170 /90. Left ankle end-diastolic pressure is about 20-25. There was no gradient across the aortic valve SELECTIVE CORONARY ARTERIOGRAPHY: LEFT MAIN: This is normal length and free of occlusive disease. THE LEFT ANTERIOR DESCENDING CORONARY ARTERY: This is a good caliber vessel giving rise to moderate caliber diagonal branch. The LAD has mild diffuse disease. The diagonal branch has a critical 99% stenosis. THE LEFT CIRCUMFLEX AND IS CORONARY ARTERY: This is a good caliber vessel giving rise good-sized OM branch. The OM branch has about 80-90% stenosis. There are small OM are intermediate branch is. One of the intermediate branch has about 90% stenosis but small in caliber THE RIGHT CORONARY ARTERY: This is a dominant vessel and good in size, giving rise to good-sized PDA and PLV. This vessel is free of any significant focal lesions LEFT VENTRICULOGRAPHY: Not performed FINAL IMPRESSION: Critical lesion involving the diagonal branch and also OM branch of the circumflex. There is critical lesion in the small intermediate branch is PLAN: Stent placement of the diagonal and the OM branch of circumflex PROGNOSIS:. Fair
[2019-02-05] MEDS: LISINOPRIL 5 MG TAB PO SCH (21:19)
[2019-02-06 07:07] LABS: Basophils # (A) 0.1 k/uL (0-0.2); Basophils % (A) 1 %; Eosinophils # (A) 0.4 k/uL (0-0.7); Eosinophils % (A) 5 %; HCT 49.4 % (39.0-53.0); HGB 16.4 gm/dL (13.0-17.5); Lymphocytes # (A) 1.3 k/uL (1.0-4.8); Lymphocytes % (A) 17 %; MCH 32.2 pg (25.0-35.0); MCHC 33.2 g/dL (31.0-37.0); MCV 96.7 fL (80.0-100.0); Mean Platelet Volume 6.8; Monocytes # (A) 0.4 k/uL (0-1.0); Monocytes % (A) 6 %; Neutrophils # (A) 5.2 k/uL (1.3-7.7); Neutrophils % (A) 69 %; Platelet Count 266 k/uL (150-450); RBC 5.11 m/uL (4.30-5.90); RDW 12.9 % (11.5-15.5); WBC 7.6 k/uL (3.8-10.6)
[2019-02-06 07:14] LABS: African American GFR (CKD) >90 (>60 ml/min/1.73 sqM); Anion Gap 9 mmol/L; Blood Urea Nitrogen 15 mg/dL (9-20); Calcium 9.6 mg/dL (8.4-10.2); Carbon Dioxide 22 mmol/L (22-30); Chloride 108 mmol/L (98-107); Glucose 119 mg/dL (74-99); Potassium 4.2 mmol/L (3.5-5.1); Sodium 139 mmol/L (137-145)
[2019-02-06] MEDS ORDERED: ATORVASTATIN 80 MG TAB PO SCH (09:00)
[2019-02-06] MEDS ORDERED: ASPIRIN 81 MG PO SCH (09:00)
[2019-02-06] MEDS: FAMOTIDINE 20 MG/2 ML VIAL IV SCH (09:21)
[2019-02-06] MEDS: LISINOPRIL 5 MG TAB PO SCH (09:21)
[2019-02-06] MEDS: METOPROLOL TARTRATE 25 MG TAB PO SCH (09:21)
[2019-02-06] MEDS ORDERED: PRASUGREL 10 MG TAB PO SCH (10:00)
[2019-02-06 10:12] VITALS: BP 161/89; PULSE 83; RESP 18; TEMP 98.2
[2019-02-06 10:20] VITALS: BMI 32.3
--- NOTE | 2019-02-06 12:33 | P.PN ---
Subjective Progress Note Date: 02/06/19 This patient is admitted to the hospital with symptoms size to focus and angina. Patient had a cardiac catheterization and was found to have critical lesion in the diagonal and also mid circumflex. Patient had stent placement of the both lesions. He does have a small intermediate branch that has significant disease but is small for intervention. Patient is feeling well. His puncture in the right wrist appear to be healing well. Lungs are clear. Heart is regular. His blood pressure is fluctuating. Patient could be discharged home. Follow-up in the office in one week Objective - Vital Signs Vital signs: Vital Signs Temp 98.2 F 02/06/19 09:21 Pulse 83 02/06/19 11:17 Resp 18 02/06/19 11:17 BP 161/89 02/06/19 09:21 Pulse Ox 99 02/06/19 09:21 Intake & Output 02/05/19 02/06/19 02/06/19 18:59 06:59 18:59 Intake Total 1851.4 720 Output Total 1500 550 Balance 351.4 170 Weight 108.4 kg 108.4 kg Intake: IV 287 Intake, IV Titration 1124.4 Amount Heparin Sod,Pork in 0.45% 124.4 NaCl 25,000 unit In 0.45 % NaCl 1 250ml.bag @ 8.7 UNITS/KG/HR 9.866 mls/hr IV .Q24H C[facility]INE Rx#: [id number] Sodium Chloride 0.9% 1, 1000 000 ml @ 100 mls/hr IV . Q10H C[facility]INE Rx#:[id number] Oral 440 720 Output: Urine 1500 550 Other: Voiding Method Toilet Toilet Toilet # Voids 1 1 1 # Bowel Movements 1 - Exam GENERAL EXAM: Patient is alert and oriented and doesn't appear to be in any acute distress HEENT: Normocephalic. Normal reaction of pupils, equal size, normal range of extraocular motion. No erythema or exudates in the throat. NECK: No masses, no nuchal rigidity. CHEST: No chest wall deformity. LUNGS: Equal air entry with no crackles or wheeze. HEART: S1 and S2 normal with no audible mumurs or gallops. Regular rhythm, femorals equal on both sides.. ABDOMEN: No hepatosplenomegaly, normal bowel sounds, no guarding or rigidity. SKIN: No rashes CENTRAL NERVOUS SYSTEM: No focal deficits. EXTREMITIES: No cyanosis, clubbing or edema. PUNCTURE SITE: The puncture in the right wrist seem to be healing well. Radial pulses bounding. - Labs CBC & Chem 7: 02/06/19 06:21 02/06/19 06:21 Labs: Abnormal Lab Results - Last 24 Hours (Table) 02/06/19 Range/Units 06:21 Chloride 108 H (98-107) mmol/L Glucose 119 H (74-99) mg/dL Assessment and Plan (1) Crescendo angina Status: Acute Code(s): I20.0 - UNSTABLE ANGINA SNOMED Code(s): 7902090 (2) Coronary artery disease Status: Acute Code(s): I25.10 - ATHSCL HEART DISEASE OF [place] CORONARY ARTERY W/O ANG PCTRS SNOMED Code(s): 10345450 Plan: Patient is currently doing well. Being discharged home. Follow-up in the office in one week
--- NOTE | 2019-02-07 09:24 | ECHOF ---
Referral Reason:Chest pain and cardiomyopathy MEASUREMENTS -------- HEIGHT: 180.3 cm WEIGHT: 110.2 kg BP: 156/97 IVSd: 1.3 cm (0.6 - 1.1) LVIDd: 4.4 cm (3.9 - 5.3) LVPWd: 1.3 cm (0.6 - 1.1) IVSs: 2.2 cm LVIDs: 2.0 cm LVPWs: 2.0 cm LAESV Index (A-L): 26.91 ml/m Ao Diam: 3.1 cm (2.0 - 3.7) AV Cusp: 2.0 cm (1.5 - 2.6) LA Diam: 3.8 cm (2.7 - 3.8) MV EXCURSION: 15.618 mm (> 18.000) MV EF SLOPE: 108 mm/s (70 - 150) EPSS: 0.1 cm MV E Barrera: 0.75 m/s MV DecT: 223 ms MV A Barrera: 0.52 m/s MV E/A Ratio: 1.44 RAP: 5.00 mmHg RVSP: 18.11 mmHg FINDINGS -------- Sinus rhythm. This was a technically adequate study. The left ventricular size is normal. There is mild concentric left ventricular hypertrophy. Overa ll left ventricular systolic function is normal with, an EF between 55 - 60 %. The right ventricle is normal in size. The left atrial size is normal. The right atrial size is normal. The aortic valve is trileaflet, and appears structurally normal. No aortic stenosis or regurgitation. The mitral valve is normal. Mild mitral regurgitation is present. Trace tricuspid regurgitation present. There is no evidence of pulmonary hypertension. The right ventricular systolic pressure, as measured by Doppler, is 18.11mmHg. There is no pulmonic regurgitation present. The aortic root size is normal. IVC Not well visulized. There is no pericardial effusion. CONCLUSIONS -------- 1. Sinus rhythm. 2. This was a technically adequate study. 3. The left ventricular size is normal. 4. There is mild concentric left ventricular hypertrophy. 5. Overall left ventricular systolic function is normal with, an EF between 55 - 60 %. 6. The left atrial size is normal. 7. The aortic valve is trileaflet, and appears structurally normal. No aortic stenosis or regurgitati on. 8. Mild mitral regurgitation is present. 9. Trace tricuspid regurgitation present. 10. There is no evidence of pulmonary hypertension. 11. There is no pulmonic regurgitation present. 12. The aortic root size is normal. 13. IVC Not well visulized. 14. There is no pericardial effusion. CLASSIFIED COPY CONTROL CLERK: Kita Humphreys RDCS
== END 2019-02-06 12:03 | disposition home or self-care (01) | DRG 247 ==
LOC: EC 11:27 → 3SCARD 13:06
PROVIDERS: ADMIT Internal Medicine; ATTEND Internal Medicine
PROC: 027135Z Dilation of Coronary Artery, Two Arteries with Two Drug-eluting Intraluminal Devices, Percutaneous Approach (ICD-10-PCS; principal; 2019-02-05 09:00)
PROC: 4A023N7 Measurement of Cardiac Sampling and Pressure, Left Heart, Percutaneous Approach (ICD-10-PCS; 2019-02-05 09:00)
PROC: B2111ZZ Fluoroscopy of Multiple Coronary Arteries using Low Osmolar Contrast (ICD-10-PCS; 2019-02-05 09:00)
DX: I25.110 Atherosclerotic heart disease of native coronary artery with unstable angina pectoris (principal); I16.0 Hypertensive urgency; E66.9 Obesity, unspecified; Z68.32 Body mass index [BMI] 32.0-32.9, adult; G47.30 Sleep apnea, unspecified; I10 Essential (primary) hypertension; R74.8 Abnormal levels of other serum enzymes; Z79.899 Other long term (current) drug therapy; Z82.49 Family history of ischemic heart disease and other diseases of the circulatory system; Z80.1 Family history of malignant neoplasm of trachea, bronchus and lung
CPT/HCPCS: 36415; 71046; 78452; 80048; 80053; 80061; 83735; 83880; 84132; 84484; 85025; 85347; 85379; 85610; 85730; 93005; 93017; 93306; 93458; 96365; 96366; 96376; 99291; C1874

== ENCOUNTER 2019-08-05 09:34 | Emergency (ER) | payer OTHER ==
[2019-08-05 09:39] VITALS: TEMP 98
--- NOTE | 2019-08-05 09:59 | ED ---
General Adult HPI - General Chief complaint: Extremity Problem,Nontraumatic Stated complaint: Poss DVT Time Seen by Provider: 08/05/19 09:47 Source: patient, RN notes reviewed Mode of arrival: ambulatory Limitations: no limitations - History of Present Illness Initial comments: Patient is a pleasant 54-year-old male presenting to the emergency department with complaints of left leg swelling. Patient states she did injure his knee while chopping wood this summer. Patient states a couple of days ago he noticed some swelling. Patient states swelling is left leg however does seem to be mostly in the left knee. Patient states he is able to ambulate with a mild limp. No other area of involvement. Patient denies having discomfort in the posterior knee or calf. No chest pain or dyspnea. Patient states he went to the [facility] who sent him here for an ultrasound. Patient states he is only here for an ultrasound. Patient denies any fevers or redness. - Related Data Home Medications Medication Instructions Recorded Confirmed Niacin 500 mg PO DAILY 02/03/19 02/03/19 Vitamin B Complex 1 cap PO DAILY 02/03/19 02/03/19 Previous Rx's Medication Instructions Recorded Aspirin 81 mg PO DAILY #30 chew 02/06/19 Atorvastatin [Lipitor] 80 mg PO DAILY #30 tab 02/06/19 Clopidogrel Bisulfate [Plavix] 75 mg PO DAILY #30 tab 02/06/19 Lisinopril [Zestril] 5 mg PO BID #60 tab 02/06/19 Metoprolol Tartrate [Lopressor] 25 mg PO BID #60 tab 02/06/19 Nitroglycerin Sl Tabs [Nitrostat] 0.4 mg SUBLINGUAL Q5M PRN #30 tab 02/06/19 Allergies Allergy/AdvReac Type Severity Reaction Status Date / Time No Known Allergies Allergy Verified 08/05/19 09:39 Review of Systems ROS Statement: Those systems with pertinent positive or pertinent negative responses have been documented in the HPI. ROS Other: All systems not noted in ROS Statement are negative. Constitutional: Denies: fever, chills Eyes: Denies: eye pain ENT: Denies: ear pain Respiratory: Denies: cough Cardiovascular: Denies: chest pain Endocrine: Denies: fatigue Gastrointestinal: Denies: abdominal pain Genitourinary: Denies: dysuria Musculoskeletal: Reports: as per HPI. Denies: back pain Skin: Denies: rash Neurological: Denies: weakness Past Medical History Past Medical History: Hypertension History of Any Multi-Drug Resistant Organisms: None Reported Past Surgical History: Tonsillectomy Additional Past Surgical History / Comment(s): "U triple P" for sleep apnea, stents x 2 2019 Past Psychological History: No Psychological Hx Reported Smoking Status: Never smoker Past Alcohol Use History: Occasional Past Drug Use History: None Reported - Past Family History Mother Family Medical History: Cancer Additional Family Medical History / Comment(s): lung CA with thoracotomy Father Family Medical History: Myocardial Infarction ([place]) Additional Family Medical History / Comment(s): passed in 2007 General Exam Limitations: no limitations General appearance: alert, in no apparent distress Head exam: Present: normocephalic Eye exam: Present: normal appearance Neck exam: Present: normal inspection Respiratory exam: Present: normal lung sounds bilaterally Cardiovascular Exam: Present: regular rate, normal rhythm Expanded Peripheral pulses: 2+: Dorsalis Pedis (R), Dorsalis Pedis (L) GI/Abdominal exam: Present: soft. Absent: tenderness Extremities exam: Present: other (Patient does have minimal swelling of the left knee anterior. Distally the extremity is neurovascular intact.). Absent: calf tenderness Neurological exam: Present: alert. Absent: motor sensory deficit Psychiatric exam: Present: normal affect, normal mood Skin exam: Present: normal color. Absent: rash, erythema Course Vital Signs 08/05/19 09:37 Temperature 98 F Pulse Rate 65 Respiratory 20 Rate Blood Pressure 224/98 O2 Sat by Pulse 96 Oximetry Medical Decision Making - Medical Decision Making Patient reevaluated and resting comfortably in bed. Patient updated on results and need for follow-up. Patient also updated on need to return for worsening symptoms. - Radiology Data Radiology results: report reviewed (Ultrasound negative for DVT) Disposition Clinical Impression: Left knee pain Disposition: HOME SELF-CARE Condition: Stable Instructions (If sedation given, give patient instructions): Osteoarthritis (ED), Swollen Knee Joint (ED) Additional Instructions: Please follow-up with primary care physician and orthopedics in the next couple days for recheck. Return for redness, increased swelling, increased pain, fevers, worsening symptoms or other concerns. Is patient prescribed a controlled substance at d/c from ED?: No Referrals: [facility],Clinic [Primary Care Provider] - 1-2 days Frederic Nguyen MD [STAFF PHYSICIAN] - 1-2 days Time of Disposition: 11:01
--- NOTE | 2019-08-05 10:30 | US ---
EXAMINATION TYPE: US venous doppler duplex LE LT DATE OF EXAM: 08/05/2019 9:56 AM COMPARISON: NONE CLINICAL HISTORY: swelling. Left leg pain and swelling. SIDE PERFORMED: Left TECHNIQUE: The lower extremity deep venous system is examined utilizing real time linear array sonog titi with graded compression, doppler sonography and color-flow sonography. VESSELS IMAGED: External Iliac Vein (EIV) Common Femoral Vein Deep Femoral Vein Greater Saphenous Vein * Femoral Vein Popliteal Vein Small Saphenous Vein * Proximal Calf Veins (* superficial vessels) Left Leg: Negative for DVT Grayscale, color doppler, spectral doppler imaging performed of the deep veins of the left lower extr emity. There is normal flow, compressibility, vascular waveforms. IMPRESSION: No sonographic evidence of cholelithiasis within the visualized left lower extremity.
[2019-08-05] MEDS ORDERED: LISINOPRIL 5 MG TAB PO STA (11:03)
[2019-08-05 11:06] VITALS: BP 177/100; PULSE 68; RESP 16
== END 2019-08-05 11:12 | disposition home or self-care (01) ==
LOC: EC 09:34
DX: M25.562 Pain in left knee (principal); M79.89 Other specified soft tissue disorders; R26.89 Other abnormalities of gait and mobility; I10 Essential (primary) hypertension; Z79.899 Other long term (current) drug therapy; Z87.828 Personal history of other (healed) physical injury and trauma
CPT/HCPCS: 99283

== ENCOUNTER → 2019-10-04 | Outpatient (CLI) | payer OTHER ==
[2019-10-04 10:35] LABS: HCT 46.5 % (39.0-53.0); HGB 15.5 gm/dL (13.0-17.5); MCH 31.8 pg (25.0-35.0); MCHC 33.2 g/dL (31.0-37.0); MCV 95.8 fL (80.0-100.0); Mean Platelet Volume 7.6; Platelet Count 231 k/uL (150-450); RBC 4.86 m/uL (4.30-5.90); RDW 12.5 % (11.5-15.5); WBC 7.5 k/uL (3.8-10.6)
[2019-10-04 10:51] LABS: African American GFR (CKD) >90 (>60 ml/min/1.73 sqM); Anion Gap 5 mmol/L; Blood Urea Nitrogen 17 mg/dL (9-20); Carbon Dioxide 27 mmol/L (22-30); Chloride 103 mmol/L (98-107); Non-African American GFR(CKD) >90 (>60 ml/min/1.73 sqM); Potassium 4.6 mmol/L (3.5-5.1); Sodium 135 mmol/L (137-145)
== END | disposition home or self-care (01) ==
LOC: LABPAT 09:52
PROVIDERS: ATTEND Internal Medicine Cardiovascular Disease
DX: Z01.812 Encounter for preprocedural laboratory examination (principal); I25.10 Atherosclerotic heart disease of native coronary artery without angina pectoris
CPT/HCPCS: 36415; 80051; 82565; 84520; 85027

== ENCOUNTER 2019-10-05 10:23 | Day surgery (SDC) | payer OTHER ==
[2019-10-04 11:34] VITALS: BMI 33.2
[~2019-10-05 10:23] MED LIST: ALPRAZolam 0.25 MG TAB PO PRN; ALPRAZolam 0.5 MG TAB PO PRN; ASPIRIN 325 MG TAB PO STA; ATORVASTATIN 80 MG TAB PO STA; NITROGLYCERIN SL TABS 0.4 MG TAB SUBLINGUAL PRN; SODIUM CHLORIDE 0.9% 1,000 ML in EMPTY BAG 1 BAG IV ONE
[2019-10-05] MEDS ORDERED: SODIUM CHLORIDE 0.9% 1,000 ML IV ONE (10:59)
[2019-10-05] MEDS ORDERED: fentaNYL (PF) 50 MCG/ML 2 ML AMP ONE (11:17)
[2019-10-05] MEDS ORDERED: VERAPAMIL 2.5 MG/ML 2 ML AMP ONE (11:17)
[2019-10-05] MEDS ORDERED: LIDOCAINE 1% INJ 10MG/ML (20 ML MDV) ONE (11:17)
[2019-10-05] MEDS: fentaNYL (PF) 50 MCG/ML 2 ML AMP IV ONE ×2 (11:30→11:39)
[2019-10-05] MEDS ORDERED: MIDAZOLAM 2 MG/2 ML VIAL IV ONE (11:30)
[2019-10-05] MEDS ORDERED: LIDOCAINE 1% INJ 10MG/ML (20 ML MDV) SQ ONE (11:31)
[2019-10-05] MEDS ORDERED: VERAPAMIL SYRINGE (5 MG/10 ML) INTRAARTER ONE (11:33)
--- NOTE | 2019-10-05 12:17 | P.CARDCATH ---
Date of Procedure: 10/05/19 Preoperative Diagnosis: Exertional angina Postoperative Diagnosis: Critical lesion involving small caliber intermediate branch. Patent stents in the circumflex and the diagonal Procedure(s) Performed: Left heart catheterization without left ventriculography Description of Procedure: HISTORY: This is a 54-year-old gentleman with history of ischemic heart disease with previous stent placement of the circumflex and the diagonal who has been experiencing chest discomfort similar to what he had prior to the previous stent placement suggestive of crescendo angina. Patient is advised to have cardiac catheterization for definitive diagnosis CONSENT:I have discussed the risks, benefits and alternative therapies for the above-mentioned procedure and for both sedation/analgesia as well as necessary blood product administration, if indicated, as they pertain to this patient. The patient has indicated understanding and acceptance of the risks and procedures discussed. PROCEDURE: Patient was brought to the lab in a fasting state. Patient was given some IV sedation. The right wrist is infiltrated with lidocaine and right radial artery was entered using Seldinger technique. A 6-Swedish catheter was left in place and selective coronary arteriography was performed. Patient tolerated the procedure well. Patient was found to have a critical lesion in the OM branch with patent stents in the circumflex and also diagonal. Patient is going to have stent placement of the intermediate branch Conscious Sedation: Versed 2mg Fentanyl 100 g Duration 25 minutes HEMODYNAMICS: The aortic pressure is 140/70. Left ventricular end-diastolic pressure is about 8-10. There was no gradient across the aortic valve SELECTIVE CORONARY ARTERIOGRAPHY: LEFT MAIN: Normal length and patent THE LEFT ANTERIOR DESCENDING CORONARY ARTERY:. This is a good caliber vessel giving rise good-sized diagonal branch. The diagonal branch is about 50% ostial stenosis. The stent in midportion. The diagonal is patent THE LEFT CIRCUMFLEX AND IS CORONARY ARTERY:. There is a good caliber vessel giving rise to good-sized PLV branch. The stent in the pr oximal circumflex is patent. There is about 40-50% lesion in the mid to distal circumflex THE INTERMEDIATE CORONARY ARTERY: This is a moderate caliber vessel with about 80-90% stenosis at 2 spots. THE RIGHT CORONARY ARTERY:. This a dominant vessel and free of any significant occlusive disease. LEFT VENTRICULOGRAPHY: Not Performed FINAL IMPRESSION: Critical lesion involving the small intermediate branch. Patent stents in the circumflex and diagonal with mild to moderate disease in the distal circumflex and also in the ostial diagonal PLAN: Stent placement of the intermediate PROGNOSIS: Fair
[2019-10-05] MEDS ORDERED: BIVALIRUDIN 250 MG in SODIUM CHLORIDE 0.9% 50 ML IV ONE (12:19)
[2019-10-05] MEDS ORDERED: BIVALIRUDIN BOLUS 250 MG/50 ML IV ONE (12:19)
[2019-10-05] MEDS ORDERED: IOPAMIDOL-370 125ML BTL INJ ONE (12:30)
[2019-10-05] MEDS ORDERED: NITROGLYCERIN 1000MCG/10ML SYRINGE INTRACORON ONE (12:39)
[2019-10-05] MEDS ORDERED: IOPAMIDOL-370 100ML BTL INJ ONE (12:45)
[2019-10-05] MEDS ORDERED: ZOLPIDEM 5 MG TAB PO PRN (12:57)
[2019-10-05] MEDS ORDERED: RX INFO: IV CONTRAST WAS GIVEN 1 EACH MISC MISCELLANE PRN (12:57)
[2019-10-05] MEDS ORDERED: ATROPINE SULFATE 0.1 MG/ML 10ML SYRINGE IV PRN (12:57)
[2019-10-05] MEDS ORDERED: MAG HYDROX/AL HYDROX/SIMETH 30 ML CUP PO PRN (12:57)
[2019-10-05] MEDS ORDERED: NITROGLYCERIN SL TABS 0.4 MG TAB SUBLINGUAL PRN (12:57)
[2019-10-05] MEDS ORDERED: SODIUM CHLORIDE 0.9% 1,000 ML IV SCH (13:00)
[2019-10-05] MEDS ORDERED: ONDANSETRON 4 MG/2 ML VIAL IVP STA (14:00)
--- NOTE | 2019-10-05 14:06 | PTCA ---
PERCUTANEOUSTRANS CORORONARY ANGIOGRAPHY Mr. Holman is a 54-year-old male with known history of coronary artery disease who in January of 2019, underwent stenting of his second diagonal branch as well as his left circumflex. He presented with symptoms of recurrent angina pectoris. He was evaluated by Dr. Suggs, underwent cardiac catheterization, was found to have patent stent, but significant obstructive disease involving the first small diagonal branch. In view of that, recommendation was made regarding angioplasty and stenting. The procedures, risks, and complication were discussed with the patient who is in full understanding and agreement. PROCEDURE: A 6-[place] EBU 3.75 guiding catheter introduced into the system after stenting the left main, a 0.014 balanced medium weight J-wire was advanced across the lesion, positioned distal to the first diagonal branch. Subsequently, 2.0 x 12 mm Trek balloon was advanced and 2 inflations maximum 10 atmospheres were done. Following that, the balloon was removed and a 2.0 x 22 mm Resolute [place] stent was deployed and post dilated at 14 atmospheres. After the last inflation, after appropriate wait, the balloon and the guidewire were withdrawn back in the guiding catheter. Images were obtained and repeated. Those images reveal stable successful stenting. At that point, the guiding catheter, the balloon and the guidewire were removed, the sheath was removed. Hemostasis was obtained with deployment of a TR band. There was no immediate complication. Patient is returned to his room in stable condition. Of note, the patient had chest discomfort with the inflation that resulted in the procedure. He received Angiomax per protocol and was continued on clopidogrel. RESULTS: Successful stenting of the first diagonal branch with reduction of stenosis from 90% to 0%. RECOMMENDATION: Patient will be continued on aspirin, Plavix, beta raj, and statin. The importance of dual antiplatelet treatment were discussed with the patient and his family who are in full understanding and agreement. DURATION OF PROCEDURE: 28 minutes. MMODL / IJN: [id number] /
[2019-10-05] MEDS: METOPROLOL TARTRATE 25 MG TAB PO SCH (16:32)
[2019-10-05] MEDS ORDERED: ACETAMINOPHEN TAB 325 MG TAB PO PRN (17:05)
[2019-10-06 04:09] VITALS: RESP 18; TEMP 98
[2019-10-06 07:29] LABS: African American GFR (CKD) >90 (>60 ml/min/1.73 sqM); Anion Gap 5 mmol/L; Blood Urea Nitrogen 12 mg/dL (9-20); Calcium 8.8 mg/dL (8.4-10.2); Carbon Dioxide 27 mmol/L (22-30); Chloride 103 mmol/L (98-107); Glucose 120 mg/dL (74-99); Non-African American GFR(CKD) >90 (>60 ml/min/1.73 sqM); Potassium 4.4 mmol/L (3.5-5.1); Sodium 135 mmol/L (137-145)
--- NOTE | 2019-10-06 07:46 | P.DS ---
Providers Date of admission: 10/05/2019 Attending physician: Dilan Suggs Consults: 10/05/19 12:57 Consult Physician Routine Consulting Provider: [facility] Consult Reason/Comments: Post Interventional patient Do you want consulting provider notified?: Already Contacted Primary care physician: Fredi Yost, PAC - Discharge Diagnosis(es) (1) Coronary artery disease Current Visit: No Status: Acute (2) Crescendo angina Current Visit: No Status: Acute Hospital Course: This patient was admitted with increasing chest pain suggestive of angina. Cardiac catheterization revealed critical lesion in the intermediate /first diagonal branch. Patient underwent stent placement by Dr. Dominguez. Patient tolerated the procedure well, remained stable overnight. His puncture site in the right wrist appear to be soft without any hematoma. Radial pulses are preserved. Lungs are clear. Heart is regular. No JVD. Patient is tolerating activity well. Patient is being discharged home. Continue home medications. Follow-up with Dr. Suggs in 1 week. Patient is advised to avoid any heavy activity with his right wrist. Plan - Discharge Summary Discharge Rx Participant: No New Discharge Prescriptions: New Nitroglycerin Sl Tabs [Nitrostat] 0.4 mg SUBLINGUAL Q5M PRN tab PRN Reason: Chest Pain Continue Niacin 500 mg PO DAILY Vitamin B Complex 1 cap PO DAILY Aspirin 81 mg PO DAILY #30 chew Atorvastatin [Lipitor] 80 mg PO DAILY #30 tab Metoprolol Tartrate [Lopressor] 25 mg PO BID #60 tab Nitroglycerin Sl Tabs [Nitrostat] 0.4 mg SUBLINGUAL Q5M PRN #30 tab PRN Reason: Chest Pain Clopidogrel Bisulfate [Plavix] 75 mg PO DAILY #30 tab Lisinopril [Zestril] 10 mg PO DAILY Discharge Medication List Niacin 500 mg PO DAILY 02/03/19 [History] Vitamin B Complex 1 cap PO DAILY 02/03/19 [History] Aspirin 81 mg PO DAILY #30 chew 02/06/19 [Rx] Atorvastatin [Lipitor] 80 mg PO DAILY #30 tab 02/06/19 [Rx] Clopidogrel Bisulfate [Plavix] 75 mg PO DAILY #30 tab 02/06/19 [Rx] Metoprolol Tartrate [Lopressor] 25 mg PO BID #60 tab 02/06/19 [Rx] Nitroglycerin Sl Tabs [Nitrostat] 0.4 mg SUBLINGUAL Q5M PRN #30 tab 02/06/19 [Rx] Lisinopril [Zestril] 10 mg PO DAILY 10/04/19 [History] Nitroglycerin Sl Tabs [Nitrostat] 0.4 mg SUBLINGUAL Q5M PRN tab 10/06/19 [Rx] Follow up Appointment(s)/Referral(s): [facility] [NON-STAFF] - (After discharge, you will follow-up with your cloth measurer machine. Once you have obtained a prescription for cardiac rehab and have completed a stress test, please call [phone] to set up an evaluation.) Dilan Suggs MD [STAFF PHYSICIAN] - 1 Week Patient Instructions/Handouts: *[facility] - After Heart Catheterization - Maintenance Engineer Instructions, Heart Healthy Diet (DC) Discharge Disposition: HOME SELF-CARE
[2019-10-06] MEDS: METOPROLOL TARTRATE 25 MG TAB PO SCH (07:50)
[2019-10-06 07:57] VITALS: BP 145/87; PULSE 76
[2019-10-06] MEDS ORDERED: CLOPIDOGREL 75 MG TAB PO SCH (09:00)
[2019-10-06] MEDS ORDERED: ASPIRIN 81 MG PO SCH (09:00)
[2019-10-06] MEDS ORDERED: LISINOPRIL 10 MG TAB PO SCH (09:00)
[2019-10-06] MEDS ORDERED: NIACIN TR 500 MG CAPLET PO SCH (09:00)
[2019-10-06] MEDS ORDERED: ATORVASTATIN 80 MG TAB PO SCH (09:00)
== END 2019-10-06 08:50 | disposition home or self-care (01) ==
LOC: CATHCVL 10:23 → 3SCARD 16:19 → CATHCVL 10-06 08:50
PROVIDERS: ATTEND Internal Medicine Cardiovascular Disease
DX: I25.110 Atherosclerotic heart disease of native coronary artery with unstable angina pectoris (principal); I10 Essential (primary) hypertension; E78.00 Pure hypercholesterolemia, unspecified; Z79.82 Long term (current) use of aspirin; Z79.02 Long term (current) use of antithrombotics/antiplatelets; Z79.899 Other long term (current) drug therapy; Z82.49 Family history of ischemic heart disease and other diseases of the circulatory system; Z95.5 Presence of coronary angioplasty implant and graft
CPT/HCPCS: 93458; 80048; C9600; C1769 ×2; C1887; C1725; C1874; C1894; J2250; J2405; J2001; J3010; J0583; J1644; Q9967 ×2

== ENCOUNTER 2021-08-09 13:03 | Inpatient (IN) | payer OTHER ==
[2021-08-09] MEDS ORDERED: HYDROmorphone 1 MG/ML 1 ML SYRINGE IVP STA (14:01)
[2021-08-09] MEDS ORDERED: ONDANSETRON 4 MG/2 ML VIAL IVP STA (14:01)
[2021-08-09] MEDS ORDERED: KETOROLAC 15 MG/ML 1 ML VIAL IVP STA (14:01)
[2021-08-09 14:11] LABS: INR 0.9 (<1.2); Prothrombin Time 10.1 sec (9.0-12.0)
[2021-08-09 14:13] LABS: Albumin 5.3 g/dL (3.5-5.0); Basophils # (A) 0.1 k/uL (0-0.2); Basophils % (A) 1 %; Calcium 10.9 mg/dL (8.4-10.2); Eosinophils # (A) 0.2 k/uL (0-0.7); Eosinophils % (A) 2 %; HCT 50.4 % (39.0-53.0); HGB 17.3 gm/dL (13.0-17.5); Lymphocytes % (A) 8 %; MCH 33.5 pg (25.0-35.0); MCHC 34.4 g/dL (31.0-37.0); MCV 97.5 fL (80.0-100.0); Magnesium 1.8 mg/dL (1.6-2.3); Mean Platelet Volume 7.8; Monocytes # (A) 0.5 k/uL (0-1.0); Monocytes % (A) 4 %; Neutrophils # (A) 11.1 k/uL (1.3-7.7); Neutrophils % (A) 86 %; Platelet Count 325 k/uL (150-450); RBC 5.17 m/uL (4.30-5.90); Total Bilirubin 1.3 mg/dL (0.2-1.3); Total Protein 8.4 g/dL (6.3-8.2); WBC 12.9 k/uL (3.8-10.6)
[2021-08-09] MEDS ORDERED: SODIUM CHLORIDE 0.9% 1,000 ML IV ONE (14:21)
--- NOTE | 2021-08-09 15:19 | CT ---
EXAMINATION TYPE: CT chest angio for PE DATE OF EXAM: 08/09/2021 COMPARISON: HISTORY: chest pain, tachycardia, near syncope CT DLP: 644.8 mGycm Automated exposure control for dose reduction was used. CONTRAST: CT Chest for pulmonary embolism performed with with IV Contrast, patient injected with 100 mL of Isov ue 370. FINDINGS: LUNGS: Subsegmental changes posterior margin bilateral lung bases. No pneumothorax or pleural effusio n. 4 mm nodule right upper lobe image 67 2 small to characterize. MEDIASTINUM: Pulmonary arteries enhance normally. Aorta of normal caliber. Heart size at the upper li mits of normal. No pathologic adenopathy. Small hiatal hernia. Artery atherosclerotic changes. OTHER: Hypertrophic and degenerative change spine. Low-attenuation liver suggesting fatty infiltrati on. IMPRESSION: 1. No CT evidence of pulmonary embolism. 2. Bibasilar groundglass changes could been the basis of atelectasis or early pneumonitis correlate c linically. 3. Coronary artery atherosclerotic changes
--- NOTE | 2021-08-09 15:27 | CT ---
EXAMINATION TYPE: CT lumbar spine wo con DATE OF EXAM: 08/09/2021 2:57 PM COMPARISON: Back pain HISTORY: low back pain CT DLP: 1575 mGycm Automated exposure control for dose reduction was used. Unenhanced CT of the lumbar spine was performed. Bone and soft tissue window settings are submitted as well as coronal and sagittal reconstructions. Assessment spinal canal limited due to resolution and artifact. Benign appearing left renal cyst. Atherosclerotic change of the aorta. Bibasilar subsegmental infiltr ate or atelectasis. L1-L2: Diffuse disc bulging with hypertrophic change of the facets. Mild effacement of thecal sac. Co uld not exclude canal stenosis. Suspect bilateral foraminal encroachment. L2-L3: Diffuse disc bulging with hypertrophic change of the facets. Mild effacement of thecal sac. Co uld not exclude canal stenosis. Suspect bilateral foraminal encroachment L3-L4: Marked facet arthropathy. Diminutive spinal canal or disc bulging and advanced facet arthropat hy result in canal stenosis and bilateral foraminal encroachment. L4-L5: Grade 2 anterolisthesis secondary to bilateral spondylolysis resulting in severe bilateral for aminal encroachment. Recommend MRI for assessment canal stenosis. L5-S1: Degenerative disc disease with hypertrophic change of the facets. Bilateral foraminal encroach ment. IMPRESSION: 1. Multilevel degenerative disc disease, foraminal encroachment and canal stenosis as discussed above . 2. Severe degenerative disc disease with bilateral spondylolysis and grade 2 anterolisthesis L4 on L5 . Recommend follow-up MRI
--- NOTE | 2021-08-09 15:48 | ED ---
General Adult HPI - General Chief complaint: Chest Pain Stated complaint: Chest Pain/Back Pain Time Seen by Provider: 08/09/21 13:45 Source: patient, RN notes reviewed Mode of arrival: wheelchair Limitations: no limitations - History of Present Illness Initial comments: 56-year-old male presents emergency Department with chief complaint of chest discomfort, low back pain. Patient states that he's been suffering from low back pain after he slipped and fell. Patient states pain is getting worse the point where his been sitting around more because him it's more comfortable. He states he has increasing pain with movement. He said some pain and radiates on his legs with some paresthesias C denies any bowel, bladder incontinence or retention, patient is able to ambulate but states is painful there is no associated weakness of his legs. Patient states today he had a near syncopal episode he states that he started feeling very lightheaded and became pale looking I states his heart rate was in the 120s he started having chest discomfort and mild shortness of breath at the time. Denies any leg swelling or leg discoloration no history of PE or DVT. Patient's had multiple cardiac issues including stents. - Related Data Home Medications Medication Instructions Recorded Confirmed Niacin 500 mg PO DAILY 02/03/19 10/05/19 Vitamin B Complex 1 cap PO DAILY 02/03/19 10/04/19 lisinopriL [Zestril] 10 mg PO DAILY 10/04/19 10/05/19 Previous Rx's Medication Instructions Recorded Aspirin 81 mg PO DAILY #30 chew 02/06/19 Atorvastatin [Lipitor] 80 mg PO DAILY #30 tab 02/06/19 Clopidogrel Bisulfate [Plavix] 75 mg PO DAILY #30 tab 02/06/19 Metoprolol Tartrate [Lopressor] 25 mg PO BID #60 tab 02/06/19 Nitroglycerin Sl Tabs [Nitrostat] 0.4 mg SUBLINGUAL Q5M PRN #30 tab 02/06/19 Nitroglycerin Sl Tabs [Nitrostat] 0.4 mg SUBLINGUAL Q5M PRN tab 10/06/19 Allergies Allergy/AdvReac Type Severity Reaction Status Date / Time No Known Allergies Allergy Verified 08/09/21 15:43 Review of Systems ROS Statement: Those systems with pertinent positive or pertinent negative responses have been documented in the HPI. ROS Other: All systems not noted in ROS Statement are negative. Past Medical History Past Medical History: Coronary Artery Disease (CAD), Chest Pain / Angina, Hypertension, Sleep Apnea/CPAP/BIPAP Additional Past Medical History / Comment(s): SOB w/exertion History of Any Multi-Drug Resistant Organisms: None Reported Past Surgical History: Heart Catheterization With Stent, Tonsillectomy Additional Past Surgical History / Comment(s): "UPPP" for sleep apnea, stents x 2 Past Anesthesia/Blood Transfusion Reactions: No Reported Reaction Date of Last Stent Placement:: 02-05-19 Past Psychological History: No Psychological Hx Reported Smoking Status: Never smoker Past Alcohol Use History: Occasional Past Drug Use History: None Reported - Past Family History Mother Family Medical History: Cancer Additional Family Medical History / Comment(s): lung CA with thoracotomy Father Family Medical History: Myocardial Infarction ([place]) Additional Family Medical History / Comment(s): passed in 2007 General Exam Limitations: no limitations General appearance: alert, in no apparent distress Head exam: Present: atraumatic, normocephalic, normal inspection Neck exam: Present: normal inspection, full ROM. Absent: tenderness, meningismus, lymphadenopathy Respiratory exam: Present: normal lung sounds bilaterally. Absent: respiratory distress, wheezes, rales, rhonchi, stridor Cardiovascular Exam: Present: regular rate, normal rhythm, normal heart sounds. Absent: systolic murmur, diastolic murmur, rubs, gallop, clicks GI/Abdominal exam: Present: soft, normal bowel sounds. Absent: distended, tenderness, guarding, rebound, rigid Extremities exam: Present: normal inspection, full ROM, normal capillary refill. Absent: tenderness, pedal edema, joint swelling, calf tenderness Back exam: Present: tenderness, paraspinal tenderness, vertebral tenderness. Absent: full ROM Neurological exam: Present: alert, oriented X3, CN II-XII intact, reflexes normal. Absent: motor sensory deficit Course Vital Signs 08/09/21 08/09/21 13:08 15:02 Temperature 97.5 F L Pulse Rate 107 H 95 Respiratory 18 18 Rate Blood Pressure 139/87 154/93 O2 Sat by Pulse 100 97 Oximetry Medical Decision Making - Medical Decision Making Patient's troponin is mildly elevated, d-dimer was elevated but CT is negative for acute process including negative for PE. Patient CT shows grade 2 spondylolisthesis though patient has no current red flag symptoms. Patient will be admitted for repeat troponin, laboratory asst evaluation patient was placed on heparin. Patient live pain control, steroids patient will have consult with orthospine. - Lab Data Result diagrams: 08/09/21 13:47 08/09/21 13:47 Lab Results 08/09/21 08/09/21 08/09/21 Range/Units 13:47 13:47 13:47 WBC 12.9 H (3.8-10.6) k/uL RBC 5.17 (4.30-5.90) m/uL Hgb 17.3 (13.0-17.5) gm/dL Hct 50.4 (39.0-53.0) % MCV 97.5 (80.0-100.0) fL MCH 33.5 (25.0-35.0) pg MCHC 34.4 (31.0-37.0) g/dL RDW 13.0 (11.5-15.5) % Plt Count 325 (150-450) k/uL MPV 7.8 Neutrophils % 86 % Lymphocytes % 8 % Monocytes % 4 % Eosinophils % 2 % Basophils % 1 % Neutrophils # 11.1 H (1.3-7.7) k/uL Lymphocytes # 1.0 (1.0-4.8) k/uL Monocytes # 0.5 (0-1.0) k/uL Eosinophils # 0.2 (0-0.7) k/uL Basophils # 0.1 (0-0.2) k/uL PT 10.1 (9.0-12.0) sec INR 0.9 (<1.2) APTT 23.0 (22.0-30.0) sec D-Dimer 0.82 H (<0.60) mg/L FEU Sodium 139 (137-145) mmol/L Potassium 4.0 (3.5-5.1) mmol/L Chloride 103 (98-107) mmol/L Carbon Dioxide 20 L (22-30) mmol/L Anion Gap 16 mmol/L BUN 18 (9-20) mg/dL Creatinine 1.27 H (0.66-1.25) mg/dL Est GFR (CKD-EPI)AfAm 72 (>60 ml/min/1.73 sqM) Est GFR (CKD-EPI)NonAf 62 (>60 ml/min/1.73 sqM) Glucose 108 H (74-99) mg/dL Calcium 10.9 H (8.4-10.2) mg/dL Magnesium 1.8 (1.6-2.3) mg/dL Total Bilirubin 1.3 (0.2-1.3) mg/dL AST 28 (17-59) U/L ALT 32 (4-49) U/L Alkaline Phosphatase 63 (38-126) U/L Troponin I (0.000-0.034) ng/mL Total Protein 8.4 H (6.3-8.2) g/dL Albumin 5.3 H (3.5-5.0) g/dL Coronavirus (PCR) (Not Detectd) 08/09/21 08/09/21 Range/Units 13:47 15:01 WBC (3.8-10.6) k/uL RBC (4.30-5.90) m/uL Hgb (13.0-17.5) gm/dL Hct (39.0-53.0) % MCV (80.0-100.0) fL MCH (25.0-35.0) pg MCHC (31.0-37.0) g/dL RDW (11.5-15.5) % Plt Count (150-450) k/uL MPV Neutrophils % % Lymphocytes % % Monocytes % % Eosinophils % % Basophils % % Neutrophils # (1.3-7.7) k/uL Lymphocytes # (1.0-4.8) k/uL Monocytes # (0-1.0) k/uL Eosinophils # (0-0.7) k/uL Basophils # (0-0.2) k/uL PT (9.0-12.0) sec INR (<1.2) APTT (22.0-30.0) sec D-Dimer (<0.60) mg/L FEU Sodium (137-145) mmol/L Potassium (3.5-5.1) mmol/L Chloride (98-107) mmol/L Carbon Dioxide (22-30) mmol/L Anion Gap mmol/L BUN (9-20) mg/dL Creatinine (0.66-1.25) mg/dL Est GFR (CKD-EPI)AfAm (>60 ml/min/1.73 sqM) Est GFR (CKD-EPI)NonAf (>60 ml/min/1.73 sqM) Glucose (74-99) mg/dL Calcium (8.4-10.2) mg/dL Magnesium (1.6-2.3) mg/dL Total Bilirubin (0.2-1.3) mg/dL AST (17-59) U/L ALT (4-49) U/L Alkaline Phosphatase (38-126) U/L Troponin I 0.067 H* (0.000-0.034) ng/mL Total Protein (6.3-8.2) g/dL Albumin (3.5-5.0) g/dL Coronavirus (PCR) Not Detected (Not Detectd) Disposition Clinical Impression: Chest pain, Near syncope, Spondylolisthesis, grade 2 Disposition: ADMITTED IP TO THIS HOSP Condition: Fair Referrals: [facility],Clinic [Primary Care Provider] - 1-2 days
[2021-08-09] MEDS ORDERED: HEPARIN SODIUM 1,000 UN/ML (10ML VL) IV ONE (15:49)
[2021-08-09] MEDS ORDERED: ASPIRIN 81 MG PO STA (15:49)
[2021-08-09] MEDS ORDERED: HYDROmorphone 0.5 MG/0.5 ML SYRINGE IVP PRN (15:51)
[2021-08-09] MEDS ORDERED: HYDROmorphone 1 MG/ML 1 ML SYRINGE IVP PRN (15:51)
[2021-08-09] MEDS ORDERED: methylPREDNISolone SOD SUCCI 125 MG/2 ML VIAL IV STA (15:51)
[2021-08-09] MEDS ORDERED: ONDANSETRON 4 MG/2 ML VIAL IVP PRN (15:52)
[2021-08-09] MEDS ORDERED: HEPARIN SOD,PORK IN 0.45% NACL 25,000 UNIT in 0.45% NACL 1 250ML.BAG IV SCH (16:00)
[2021-08-09] MEDS ORDERED: NITROGLYCERIN SL TABS 0.4 MG TAB SUBLINGUAL PRN (18:54)
[2021-08-09] MEDS ORDERED: CYCLOBENZAPRINE 10 MG TAB PO PRN (18:54)
[2021-08-09] MEDS ORDERED: ALPRAZolam 0.25 MG TAB PO PRN (18:56)
--- NOTE | 2021-08-09 20:18 | HP ---
HISTORY AND PHYSICAL DATE OF SERVICE: 08/09/2021. CHIEF COMPLAINTS: Chest pain and back pain. HISTORY OF PRESENT ILLNESS: This 56-year-old gentleman with a past medical history of multiple medical problems, including CAD, stent, history of hypertension, chest pain, history of sleep apnea, being followed by Dr. Jade in the [facility] in the outpatient setting complaining of back pain for the last 7 weeks. The patient apparently taking rest. The pain occurred after sleeping on the floor, today the patient was going down and the patient apparently had severe pain and the patient also had a feeling of lightheaded and had a presyncopal episode and the patient is complaining of left-sided chest pain. Heart rate is elevated and patient came to [facility] and was admitted for further evaluation and treatment. Evaluation showed troponin elevated up to 0.067. Otherwise Covid 19 was negative. D-dimer was 0.32 and white count is 12.9 and a chest CTA which I reviewed personally showed no evidence of pulmonary embolism but possible bibasilar atelectasis and lumbar CT showed multilevel DJD. Patient admitted for further evaluation and treatment. There is no history of fever, rigors, chills at this time. PAST MEDICAL HISTORY: History of CAD, stent, history of hypertension, sleep apnea. MEDICATIONS: Prior to admission include home medications are: Flexeril, Ecotrin, vitamin C, Ultram, Colace, glucosamine, Nitrostat, Lopressor, aspirin, Zestril, Plavix, Lipitor, doses reviewed. ALLERGIES: None. FAMILY HISTORY: History of lung cancer with thoracotomy. SOCIAL HISTORY: No history of smoking. Occasional alcohol intake. REVIEW OF SYSTEMS: ENT: No diminished vision. No diminished hearing. CARDIOVASCULAR: As mentioned earlier. RESPIRATORY: As mentioned earlier. GI: As mentioned earlier. : No dysuria. ALLERGY/IMMUNOLOGY: No asthma or hayfever. MUSCULOSKELETAL: As mentioned earlier. HEMATOLOGY/ONCOLOGY: No history of anemia. ENDOCRINE: No history of diabetes or hypothyroidism. CONSTITUTIONAL: As mentioned earlier. DERMATOLOGY: Negative. RHEUMATOLOGY: Negative. PSYCHIATRIC: As mentioned earlier. PHYSICAL EXAMINATION: Patient is alert and oriented times three. Pulse is 107. Blood pressure 139/87, respiration 18, temperature 97.2, pulse ox 100 percent on room air. HEENT: Conjunctivae normal. NECK: No JVD. CARDIOVASCULAR: S1, S2 muffled. RESPIRATORY: Breath sounds diminished in the bases. No rhonchi. No crackles. ABDOMEN: Soft. Nontender. No mass palpable. LEGS are no edema. No swelling. NERVOUS SYSTEM: Higher functions as mentioned earlier. Moves all four limbs. No focal motor or sensory deficits. LYMPHATICS: No lymph nodes palpable in the neck, axillae or groin. SKIN: No ulcer, no rash and no bleeding. JOINTS: No active deforming arthropathy. LABS: WBC 12.9, and D-dimer is 0.82, and calcium is 10.9. CT scan noted personally. EKG, nonspecific ST-T changes. ASSESSMENT: 1. Chest pain possible acute [id number]-elevation myocardial infarction with troponin 0.067. 2. Back pain with multilevel degenerative joint disease. 3. Bilateral atelectasis. 4. Elevated creatinine with possible acute renal failure, acute tubular necrosis. 5. Rule out rhabdomyolysis. 6. Elevated D-dimer with no evidence of pulmonary embolism. 7. Covid 19 negative. 8. Increased WBC. 9. History of coronary artery disease/ stent. 10.Hypertension. 11.History of sleep apnea. 12.History of tonsillectomy. 13.Uvulopalatopharyngoplasty for sleep apnea. 14.Obesity with body mass of 31.5. 15.FULL CODE. RECOMMENDATIONS AND DISCUSSION: This 56-year-old gentleman who presented with multiple complex medical issues, we will monitor the patient closely, continue the current medications, management and symptomatic treatment. Otherwise, at this time I recommend cardiology consultation. Unstable angina protocol. Bronchodilators. I would also recommend a procalcitonin. Otherwise 2D echo with Doppler. BNP also will be ordered. Prognosis guarded. Further recommendations will follow. A copy of dictation being forwarded to Dr. Jade who is following the patient in the outpatient setting. MMODL / IJN: [id number] /
[2021-08-09] MEDS: IPRATROPIUM-ALBUTEROL 3 ML NEB INHALATION SCH (20:42)
[2021-08-09] MEDS: ATORVASTATIN 80 MG TAB PO SCH (21:46)
[2021-08-09] MEDS: METOPROLOL TARTRATE 25 MG TAB PO SCH (21:46)
[2021-08-09] MEDS: DOCUSATE 100 MG CAP PO SCH (21:46)
[2021-08-09] MEDS ORDERED: HEPARIN SODIUM 1,000 UN/ML (10ML VL) IVP PRN ×2 (23:11→23:18)
[2021-08-09] MEDS: methylPREDNISolone SOD SUCCI 125 MG/2 ML VIAL IV SCH (23:27)
[2021-08-09] MEDS: HYDROcodone/APAP 5-325MG 1 EACH TAB PO PRN (23:28)
[2021-08-09 23:54] LABS: Appearance,Urine Clear (Clear); Bilirubin,Urine Negative (Negative); Blood,Urine Negative (Negative); Color,Urine Yellow; Glucose,Urine (UA) Negative (Negative); Ketones,Urine 1+ (Negative); Leukocyte Esterase,Urine Negative (Negative); Nitrite,Urine Negative (Negative); PH, Urine 5.5 (5.0-8.0); Protein,Urine Trace (Negative); Urobilinogen,Urine <2.0 mg/dL (<2.0)
[2021-08-09 23:55] LABS: Specific Gravity,Urine >1.050 (1.001-1.035)
[2021-08-10] MEDS: methylPREDNISolone SOD SUCCI 125 MG/2 ML VIAL IV SCH ×4 (06:28→23:05)
[2021-08-10] MEDS: PANTOPRAZOLE 40 MG TABLET PO SCH (06:39)
[2021-08-10] MEDS: HYDROcodone/APAP 5-325MG 1 EACH TAB PO PRN ×3 (06:40→20:41)
[2021-08-10] MEDS ORDERED: HEPARIN SODIUM,PORCINE 10,000 UNIT in SODIUM CHLORIDE 0.9% 1,000 ML IRRIGATION PRN (07:00)
[2021-08-10] MEDS ORDERED: HEPARIN SODIUM,PORCINE 2,500 UNIT in SODIUM CHLORIDE 0.9% 250 ML IRRIGATION PRN (07:00)
[2021-08-10 07:36] LABS: Basophils % (A) 0 %; Eosinophils # (A) 0.1 k/uL (0-0.7); Eosinophils % (A) 0 %; HCT 45.8 % (39.0-53.0); HGB 14.8 gm/dL (13.0-17.5); Lymphocytes % (A) 8 %; MCH 31.8 pg (25.0-35.0); MCHC 32.4 g/dL (31.0-37.0); MCV 98.2 fL (80.0-100.0); Mean Platelet Volume 7.6; Monocytes # (A) 0.2 k/uL (0-1.0); Monocytes % (A) 2 %; Neutrophils # (A) 10.5 k/uL (1.3-7.7); Neutrophils % (A) 89 %; Platelet Count 319 k/uL (150-450); RBC 4.67 m/uL (4.30-5.90); RDW 12.5 % (11.5-15.5); WBC 11.8 k/uL (3.8-10.6)
[2021-08-10 07:51] LABS: ALT 26 U/L (4-49); AST 25 U/L (17-59); African American GFR (CKD) >90 (>60 ml/min/1.73 sqM); Albumin 4.2 g/dL (3.5-5.0); Alkaline Phosphatase 48 U/L (38-126); Anion Gap 8 mmol/L; Blood Urea Nitrogen 25 mg/dL (9-20); Calcium 9.7 mg/dL (8.4-10.2); Carbon Dioxide 23 mmol/L (22-30); Chloride 106 mmol/L (98-107); Glucose 177 mg/dL (74-99); Non-African American GFR(CKD) >90 (>60 ml/min/1.73 sqM); Potassium 4.3 mmol/L (3.5-5.1); Sodium 137 mmol/L (137-145); Total Bilirubin 0.8 mg/dL (0.2-1.3); Total Protein 6.9 g/dL (6.3-8.2)
[2021-08-10] MEDS ORDERED: ATORVASTATIN 80 MG TAB PO STA (08:14)
[2021-08-10] MEDS: METOPROLOL TARTRATE 25 MG TAB PO SCH ×2 (08:14→20:39)
[2021-08-10] MEDS: lisinopriL 20 MG TAB PO SCH (08:14)
[2021-08-10] MEDS ORDERED: ALPRAZolam 0.5 MG TAB PO PRN (08:14)
[2021-08-10] MEDS ORDERED: ASPIRIN 325 MG TAB PO STA (08:14)
[2021-08-10] MEDS ORDERED: NITROGLYCERIN SL TABS 0.4 MG TAB SUBLINGUAL PRN ×2 (08:14→09:49)
[2021-08-10] MEDS ORDERED: ALPRAZolam 0.25 MG TAB PO PRN (08:14)
[2021-08-10] MEDS: CLOPIDOGREL 75 MG TAB PO SCH (08:14)
[2021-08-10] MEDS: ASCORBIC ACID 500 MG TAB PO SCH (08:14)
[2021-08-10] MEDS: IPRATROPIUM-ALBUTEROL 3 ML NEB INHALATION SCH ×3 (08:26→20:19)
[2021-08-10] MEDS ORDERED: VERAPAMIL 2.5 MG/ML 2 ML AMP ONE (08:49)
[2021-08-10] MEDS ORDERED: IV FLUID CONTINUATION 1,000 ML IV ONE (08:50)
[2021-08-10] MEDS ORDERED: LIDOCAINE 1% INJ 10MG/ML (20 ML MDV) ONE (08:50)
--- NOTE | 2021-08-10 08:56 | CONS ---
CONSULTATION Mr. 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 He injured his back and was having quite a bit of back discomfort. He has been inactive. Yesterday he tried to get up walking down the stairs. He fell and injured his back. Subsequently he had significant left-sided chest discomfort, felt lightheaded and presyncopal but had no full syncope. He is feeling well at this time. His breathing is stable. He denies any dizziness or palpitations. He has no PND, no orthopnea. No peripheral edema. His cardiac history is remarkable for the fact that he had prior stenting of the circumflex and the diagonal and underwent cardiac catheterization in September 2019 because of recurrent chest pain, and at that time he had patent stent to the circumflex and patent stent to the diagonal branch, but he had significant disease in the first small diagonal branch. He underwent stenting of that vessel using a 2.0, 22 mm balloon. He has done reasonably well, according to him, since that time. He has some chest discomfort when he moves his body from one position to another, but that is different from the discomfort he had yesterday. On presentation his troponin was mildly elevated. He is feeling well at the time of my evaluation. His risk coronary factors are remarkable for history of hypertension and hyperlipidemia. He is a nonsmoker, nondiabetic. His medication includes aspirin once a day, Zestril 20 mg daily, Plavix 75 mg daily, Lipitor 80 mg daily, tramadol and Flexeril. REVIEW OF SYSTEMS: RESPIRATORY SYSTEM: He has no documented history of asthma, emphysema or bronchitis. GI SYSTEM: No recent GI bleeding. No peptic ulcer disease. SYSTEM: No dysuria or hematuria. NERVOUS SYSTEM: No history of stroke or seizure. PHYSICAL EXAMINATION: He is a 56-year-old male, alert, oriented, in no apparent distress. Blood pressure 156/70 with a heart rate in the 80s. HEAD: Normocephalic. EYES: Sclerae anicteric. NECK: Good carotid upstroke. No bruit. No jugular venous distention. LUNGS: Clear to auscultation. HEART: Regular rate and rhythm. S1, S2. No S3. No S4. No murmur or rub. ABDOMEN: Soft, nontender. Positive bowel sounds. No organomegaly. EXTREMITIES: No edema. Intact distal pulses. LAB DATA: Lab data revealed a troponin of 0.067, 0.279 and 0.327. BUN and creatinine of 25 and 0.86. Potassium 4.3, hemoglobin of 14.8. EKG revealed a sinus mechanism, normal axis and intervals. No acute ST-segment changes. Chest CT angiogram shows no evidence of pulmonary embolism. Lumbar spine CT shows multilevel degenerative disk disease with severe degenerative disk disease and bilateral spondylolysis. IMPRESSION: 1. Evidence to suggest [id number]-elevation myocardial infarction by enzymatic changes and his discomfort in a patient with known history of coronary artery disease. 2. Severe back pain with recent fall. 3. Presyncope related to the pain. 4. History of prior stenting of the circumflex and diagonal branch. 5. History of hypertension. 6. Hyperlipidemia. RECOMMENDATIONS: From the cardiac standpoint, I have recommended proceeding with coronary angiography to assess his status and guide his treatment. The rationale behind the procedure, its risks and complications were discussed with the patient, who is in full understanding and agreement. Depending on the results of testing, further recommendations will be made. Thank you for this consult. Will follow with you. MMODL / IJN: [id number] /
[2021-08-10] MEDS ORDERED: [UNRECOGNIZED DRUG - OTHER] PO SCH (09:00)
[2021-08-10] MEDS ORDERED: MSM PO SCH (09:00)
[2021-08-10] MEDS ORDERED: GLUCOSAMINE PO SCH (09:00)
[2021-08-10] MEDS ORDERED: TURMERIC COMPLEX PO SCH (09:00)
[2021-08-10] MEDS ORDERED: ASPIRIN 325 MG TAB PO SCH (09:00)
[2021-08-10] MEDS ORDERED: LIDOCAINE 1% INJ 10MG/ML (20 ML MDV) SQ ONE (09:11)
[2021-08-10] MEDS ORDERED: MIDAZOLAM 2 MG/2 ML VIAL IV ONE (09:11)
[2021-08-10] MEDS ORDERED: fentaNYL (PF) 50 MCG/ML 5 ML AMP IV ONE (09:11)
[2021-08-10] MEDS ORDERED: HEPARIN SODIUM 1,000 UN/ML (10ML VL) ONE (09:15)
[2021-08-10] MEDS: HEPARIN SODIUM 1,000 UN/ML (10ML VL) IV ONE ×2 (09:17→09:23)
[2021-08-10] MEDS ORDERED: NITROGLYCERIN 1000MCG/10ML SYRINGE INTRACORON ONE (09:33)
[2021-08-10] MEDS ORDERED: IOPAMIDOL-370 125ML BTL INJ ONE (09:39)
[2021-08-10] MEDS ORDERED: IOPAMIDOL-370 100ML BTL INJ ONE (09:41)
[2021-08-10] MEDS ORDERED: MAG HYDROX/AL HYDROX/SIMETH 30 ML CUP PO PRN (09:49)
[2021-08-10] MEDS ORDERED: RX INFO: IV CONTRAST WAS GIVEN 1 EACH MISC MISCELLANE PRN (09:49)
[2021-08-10] MEDS ORDERED: ZOLPIDEM 5 MG TAB PO PRN (09:49)
[2021-08-10] MEDS ORDERED: ATROPINE SULFATE 0.1 MG/ML 10ML SYRINGE IV PRN (09:49)
--- NOTE | 2021-08-10 09:49 | P.PN ---
Progress Note - Text Progress Note Date: 08/10/21 I attempted to see the patient is morning, however he is currently in the [facility] getting a cardiac catheterization regarding his chest pain with elevated troponins and possible non-ST segment elevation myocardial infarction. We have been asked to see the patient regards to his low back pain. I have reviewed the computed tomography scan and his imaging. He has a grade 2-3 spondylolisthesis at L4 5 with significant degeneration and stenosis at that level. There is some evidence of further degeneration and stenosis at L34 and L2-3 as well. He has had chronic pain of his lower back and it seems quite likely that his recent fall exacerbated his degenerative condition of his lumbar spine and exacerbated his pain. Per the charting there does not seem to be any acute neuro neurologic deficit or change. Certainly he should continue with his management for his cardiac issues and we can continue conservative treatment for now with pain control and mobilization as he is able after his cardiac catheterization procedure. We will continue to follow along with the case.
[2021-08-10] MEDS ORDERED: SODIUM CHLORIDE 0.9% 1,000 ML IV SCH (10:00)
--- NOTE | 2021-08-10 11:47 | CC ---
CARDIAC CATHETERIZATION REPORT Mr. Holmna is a 56-year-old male with known history of coronary artery disease, followed by Dr. Suggs, status post stenting of the OM and the diagonal branch, most recently in September 2019, who presented after a fall because of severe back discomfort and had chest discomfort. He had mild troponin elevation. In view of that, recommendation was made regarding cardiac catheterization. The procedure, its risks and complications were discussed with the patient, who was in full understanding and agreement. PROCEDURE DESCRIPTION: The patient was brought to the label rewinder in a fasting, semi-sedated state after receiving fentanyl and Benadryl and achieving a moderate conscious sedated state. Using Xylocaine anesthesia and Seldinger technique, a 6-Zimbabwean sheath was introduced in the right radial artery. Selective right and left coronary angiography was performed using 5-Zimbabwean 3-1/2 bend right and left Aida catheters. Multiple views were taken of the arteries, including hemiaxial views. The right Aida was used to cross the aortic valve. Left ventricular end-diastolic pressure was calculated. Following that, catheters were removed. Images were reviewed. FINDINGS: LEFT MAIN: This is a large-sized vessel bifurcating into left circumflex and left anterior descending artery. Left main coronary artery has no evidence of high-grade stenosis. LEFT ANTERIOR DESCENDING CORONARY ARTERY: This is a large-sized vessel reaching to the apex with a wrap around the apex segment giving rise to 2 diagonal branches. The first one is very proximal. Both diagonal branches are stented and the stents are patent with no significant in-stent restenosis. The proximal LAD has a 20% to 30% plaque at the takeoff of the first diagonal branch. In the mid segment of the LAD he has an eccentric 80% hazy-appearing plaque. The rest of the vessel has no high-grade stenosis. LEFT CIRCUMFLEX: This is a nondominant vessel giving rise to a large obtuse marginal branch. The stented segment of the obtuse marginal branch is patent. Distal to the stented segment there is a 20% to 30% plaque. The rest of the vessel has no high-grade stenosis. RIGHT CORONARY ARTERY: This is a large dominant vessel bifurcating into PDA and posterolateral segment and branches. The proximal RCA has a 20% to 30% plaque. The rest of the vessel has no high-grade stenosis. LEFT VENTRICULOGRAM: Left ventriculogram was not performed. HEMODYNAMICS: There was no gradient across the aortic valve. The left ventricular end- diastolic pressure was 12-14 mmHg. CONCLUSION: 1. Significant obstructive disease involving the mid LAD. 2. Patent stents to the first and second diagonal as well as the obtuse marginal branch. 3. Mild disease in proximal LAD and proximal right coronary artery. RECOMMENDATIONS: In view of findings and anatomy, I have recommended proceeding with angioplasty and stenting of the LAD. The procedure as well as risks and complications were discussed with the patient, who is in full understanding and agreement. MMODL / IJN: [id number] /
--- NOTE | 2021-08-10 11:53 | PTCA ---
PERCUTANEOUSTRANS CORORONARY ANGIOGRAPHY Mr. Holman is a 56-year-old male with known history of coronary artery disease who presented with an episode of chest discomfort and troponin elevation consistent with jqs-LB-qfaxway-elevation myocardial infarction, underwent cardiac catheterization and was found to have significant obstructive disease in the mid LAD. In view of that, recommendation was made regarding angioplasty and stenting. The procedure as well as risks and complications were discussed with the patient, who was in full understanding and agreement. PROCEDURE DESCRIPTION: A 6-[place] Islander EBU 3.75 guiding catheter was introduced into the system. After cannulating the left main, a 0.014 balanced medium weight J-wire was advanced across the lesion and positioned distally. Subsequently a 2.5 x 12 mm Trek balloon was advanced. One inflation at 8 atmospheres was done. Following that the balloon was removed and a 2.5 x 15 mm Xience Skypoint stent was advanced, deployed and post-dilated at 16 atmospheres. After the last inflation, after appropriate wait, the balloon and the guidewire were withdrawn back into the guiding catheter. Images were obtained and repeated. Those images revealed stable successful stenting. At that point the guiding catheter, the balloon and the guidewire were removed. The sheath was removed. Hemostasis was obtained with deployment of a TR band. There was no immediate complication. Patient was returned to his room in stable condition. Of note, the patient received a total of 8000 units of intravenous heparin. His ACT was monitored. He was continued on clopidogrel. He had chest discomfort and EKG changes with the inflation that resolved at the end procedure. RESULTS: Successful stenting of the mid LAD with reduction of stenosis from 80% to 0%. RECOMMENDATIONS: Patient will be continued on aspirin, Plavix, beta raj and statin. The importance of dual antiplatelet treatment was discussed with the patient, who is in full understanding and agreement. The patient will be continued on dual antiplatelet treatment for one year. Duration of sedation was 33 minutes. MMODL / IJN: [id number] /
[2021-08-10] MEDS: SODIUM CHLORIDE 0.9% 1,000 ML in EMPTY BAG 1 BAG IV SCH ×2 (11:55→19:03)
[2021-08-10 12:00] VITALS: BMI 31.4
--- NOTE | 2021-08-10 14:00 | ECHOF ---
Referral Reason:chf MEASUREMENTS -------- HEIGHT: 182.9 cm WEIGHT: 104.8 kg BP: RVIDd: 3.0 cm (< 3.3) IVSd: 1.3 cm (0.6 - 1.1) LVIDd: 4.3 cm (3.9 - 5.3) LVPWd: 1.6 cm (0.6 - 1.1) IVSs: 1.6 cm LVIDs: 3.0 cm LVPWs: 2.0 cm LA Diam: 3.6 cm (2.7 - 3.8) LAESV Index (A-L): 26.20 ml/m Ao Diam: 2.8 cm (2.0 - 3.7) AV Cusp: 2.0 cm (1.5 - 2.6) LA Diam: 4.2 cm (2.7 - 3.8) MV EXCURSION: 18.742 mm (> 18.000) MV EF SLOPE: 146 mm/s (70 - 150) EPSS: 0.5 cm MV E Barrera: 0.43 m/s MV DecT: 267 ms MV A Barrera: 0.96 m/s MV E/A Ratio: 0.45 RAP: 5.00 mmHg RVSP: 13.62 mmHg FINDINGS -------- Sinus rhythm. This was a technically adequate study. The left ventricular size is normal. There is mild concentric left ventricular hypertrophy. Overa ll left ventricular systolic function is normal with, an EF between 55 - 60 %. The right ventricle is normal in size. Normal LA size by volume 22+/-6 ml/m2. The right atrial size is normal. The aortic valve is trileaflet, and appears structurally normal. No aortic stenosis or regurgitation. The mitral valve is normal. Mild mitral regurgitation is present. The tricuspid valve appears structurally normal. Mild tricuspid regurgitation present. Right vent ricular systolic pressure is normal at < 35 mmHg. Trace/mild (physiologic) pulmonic regurgitation. The aortic root size is normal. Echo free space represents a pericardial fat pad. CONCLUSIONS -------- 1. There is mild concentric left ventricular hypertrophy. 2. Overall left ventricular systolic function is normal with, an EF between 55 - 60 %. 3. Normal LA size by volume 22+/-6 ml/m2. 4. The aortic valve is trileaflet, and appears structurally normal. No aortic stenosis or regurgitati on. 5. Mild mitral regurgitation is present. 6. Mild tricuspid regurgitation present. 7. Trace/mild (physiologic) pulmonic regurgitation. 8. Echo free space represents a pericardial fat pad. [employer] CHIEF: Vita Borja RDCS
[2021-08-10] MEDS: INSULIN ASPART (NovoLOG) 100 UNIT/ML VIAL SQ SCH ×2 (19:03→20:39)
--- NOTE | 2021-08-10 19:29 | PN ---
PROGRESS NOTE DATE OF SERVICE: 08/10/2021 This 56-year-old gentleman admitted with chest pain and back pain, had possibly acute nfm-VZ-iyyiaen-elevation myocardial infarction. The patient also multilevel DJD, also. The patient underwent cardiac catheterization and as well as GOVERNMENT AFFAIRS SPECIALIST and stenting of the mid LAD with reduction of stenosis from 80% to 0% by Dr. Dominguez. There is no history of fever or rigors. No history of headache, loss of consciousness, seizures. PHYSICAL EXAMINATION: Alert and oriented times three. Pulse is 100, blood pressure is 181/77, respiration 18, temperature 97.2, pulse ox 98% on room air. HEENT is conjunctivae normal. NECK: No JVD. CARDIOVASCULAR: S1, S2 muffled. RESPIRATION: Breath sounds diminished in the bases. A few scattered rhonchi and crackles. ABDOMEN: Soft. Nontender. LEGS are no edema. No swelling. LABS: WBC 11.1, hemoglobin 15.8. Troponins are noted. ASSESSMENT: 1. Chest pain acute zfj-WV-lcycpfv-elevation myocardial infarction with troponin 0.06 status post cardiac catheterization and LAD stenting. 2. Back pain with multilevel degenerative joint disease. 3. Bilateral atelectasis. 4. Elevated creatinine with possible acute renal failure, acute tubular necrosis present on admission. 5. Elevated D-dimer with no evidence of pulmonary embolism. 6. Covid 19 negative. 7. Increased WBC. 8. History of coronary artery disease, stent. 9. Hypertension. 10.History of sleep apnea. 11.History of tonsillectomy. 12.Uvulopalatopharyngoplasty for sleep apnea. 13.Obesity with body mass index of 31.5. 14.FULL CODE. RECOMMENDATIONS AND DISCUSSION: I recommend to continue current medications, management and symptomatic treatment. Repeat labs. Closely follow with Cardiology and as well as Orthopedic surgery. CT scan noted. Recommend close followup in the outpatient setting as well. Further recommendations to follow. MMODL / IJN: [id number] /
[2021-08-10 19:37] LABS: Chol/HDL Ratio 4.63 Ratio; LDL Cholesterol,Calculated 170.9 mg/dL (0.0-131.0); VLDL Calculation 18.78 mg/dL (5.00-40.00)
[2021-08-10 20:35] LABS: Glucose,Whole Blood 183 mg/dL (75-99)
[2021-08-10] MEDS: DOCUSATE 100 MG CAP PO SCH (20:39)
[2021-08-10] MEDS: ATORVASTATIN 80 MG TAB PO SCH (22:06)
[2021-08-11 06:23] LABS: Glucose,Whole Blood 153 mg/dL (75-99)
[2021-08-11] MEDS: SODIUM CHLORIDE 0.9% 1,000 ML in EMPTY BAG 1 BAG IV SCH (06:29)
[2021-08-11] MEDS: HYDROcodone/APAP 5-325MG 1 EACH TAB PO PRN (06:41)
[2021-08-11] MEDS: PANTOPRAZOLE 40 MG TABLET PO SCH (06:41)
[2021-08-11] MEDS: INSULIN ASPART (NovoLOG) 100 UNIT/ML VIAL SQ SCH ×2 (06:41→13:22)
[2021-08-11] MEDS: methylPREDNISolone SOD SUCCI 125 MG/2 ML VIAL IV SCH ×2 (06:42→13:22)
[2021-08-11] MEDS: METOPROLOL TARTRATE 25 MG TAB PO SCH (08:35)
[2021-08-11] MEDS: ASCORBIC ACID 500 MG TAB PO SCH (08:35)
[2021-08-11] MEDS: CLOPIDOGREL 75 MG TAB PO SCH (08:35)
[2021-08-11] MEDS: lisinopriL 20 MG TAB PO SCH (08:35)
[2021-08-11 08:38] LABS: ALT 27 U/L (4-49); AST 23 U/L (17-59); African American GFR (CKD) >90 (>60 ml/min/1.73 sqM); Albumin 4.2 g/dL (3.5-5.0); Alkaline Phosphatase 41 U/L (38-126); Anion Gap 13 mmol/L; Blood Urea Nitrogen 29 mg/dL (9-20); Calcium 9.2 mg/dL (8.4-10.2); Carbon Dioxide 19 mmol/L (22-30); Chloride 108 mmol/L (98-107); Glucose 184 mg/dL (74-99); Non-African American GFR(CKD) >90 (>60 ml/min/1.73 sqM); Potassium 4.4 mmol/L (3.5-5.1); Sodium 140 mmol/L (137-145); Total Bilirubin 0.6 mg/dL (0.2-1.3); Total Protein 6.6 g/dL (6.3-8.2)
[2021-08-11] MEDS ORDERED: ASPIRIN 81 MG PO SCH (09:00)
[2021-08-11] MEDS: IPRATROPIUM-ALBUTEROL 3 ML NEB INHALATION SCH ×2 (09:21→12:31)
[2021-08-11 10:28] VITALS: RESP 16
[2021-08-11] MEDS ORDERED: hydroCHLOROthiazide 25 MG TAB PO SCH (11:30)
[2021-08-11 11:44] LABS: Glucose,Whole Blood 154 mg/dL (75-99)
--- NOTE | 2021-08-11 11:54 | PN ---
PROGRESS NOTE Mr. Holman is a 56-year-old male who presented with severe back pain and presyncope. At the same time, he was found to have evidence of non-STEMI. He underwent cardiac catheterization and stenting of the mid LAD. He has no further chest pain. His breathing has been stable. He denies any dizziness or palpitations. He denies any nausea. He continues to have back discomfort. He continues to be on aspirin once a day, Lipitor 80 mg daily, Plavix 75 mg daily, lisinopril 20 mg daily, metoprolol tartrate 25 mg twice a day in addition to Solu-Medrol. PHYSICAL EXAMINATION: Blood pressure is running in the 130s to 180. Heart rate in the 80s. LUNGS: Clear. HEART: Regular rate and rhythm. S1, S2. No S3. No rub. ABDOMEN: Soft, nontender. EXTREMITIES: No edema. Right radial pulse intact. LAB DATA: Lab data revealed BUN and creatinine of 29 and 0.69, potassium 4.4. His LDL was 170 on admission. IMPRESSION: 1. Auv-KE-raalwypro myocardial infarction, status post stenting of the mid LAD with possible rupture of plaque. 2. Severe back discomfort. 3. Hypertension; could be worsened by the diuretics. 4. Prior stenting of the diagonal and the circumflex. 5. Hyperlipidemia. 6. Hypertension. RECOMMENDATIONS: I will add to his regimen hydrochlorothiazide 25 mg daily to help with his blood pressure. Continue the rest of his medical regimen. Increase his level activity. From the cardiac standpoint, he is stable to be discharged home pending his back treatment. He will follow up as an outpatient with Dr. Suggs. Depending on his progress, further recommendations will be made. MMODL / IJN: [id number] /
--- NOTE | 2021-08-11 12:02 | P.HPOR ---
History of Present Illness H&P Date: 08/11/21 Chief Complaint: Low back pain with lower extremity radiculopathy Patient is a very pleasant 56-year-old male who presented to the hospital a couple days ago because of his back pain and then chest pain shortness of breath. Regards to his lower back, Patient says that he has had back pain ever since he was in high school after an injury. He says that he had occasional flareups of his back pain over the past few decades and had significant increased 2011. He says that 2 months ago he also had severe worsening when he was working out at his home and slipped and fell in the ICU month. He says that since that time he has had severe pain in his lower back and his lower extremities. He says his been in bed for days at a time because of the pain is back. He is to limit his activity and limit his work. He has been trying to take anti-inflammatory medication and rest however he has not been having improvement in his back pain. He says that he try to get up out of bed the other day and was going up the stairs but became significantly entire diaphoretic with chest pains and presented to the hospital he was found have an acute cardiac issues. He has been having appropriate workup with medicine and cardiology and underwent cardiac catheterization with stenting yesterday. He feels good in regard to his cardiac issues and post stenting. In regards to his lower back he continues to have significant pain in his lower back with any sort of mobility. He has pain at his lower extremities with numbness tingling worse on his right leg than his left. He has had workup at outside institutions with imaging as well in the past. He says he has some weakness of his lower extremities due to his pain. He denies any acute weakness. He denies any changes in bowel bladder function. He denies any focal neurologic deficit. His was on speaker phone while I saw him as well. Review of Systems As per HPI. Currently he denies any chest pain from this breath. He had a cardiac stent yesterday feels the site is doing well at his catheterization site. He has pain across his lower back whenever he tries to move her get up. He has some numbness and tingling in his lower extremities when he is upper greater than 10 minutes. He denies any changes in bowel bladder function. Denies any abdominal pain. Past Medical History Past Medical History: Coronary Artery Disease (CAD), Chest Pain / Angina, Hypertension, Sleep Apnea/CPAP/BIPAP Additional Past Medical History / Comment(s): SOB w/exertion. History of lumbar spondylolisthesis since high school with low back pain and lower extremity radiculopathy, History of Any Multi-Drug Resistant Organisms: None Reported Past Surgical History: Heart Catheterization With Stent, Tonsillectomy Additional Past Surgical History / Comment(s): "UPPP" for sleep apnea, stents x 3. Past Anesthesia/Blood Transfusion Reactions: No Reported Reaction Date of Last Stent Placement:: 02-05-19 Past Psychological History: No Psychological Hx Reported Smoking Status: Never smoker Past Alcohol Use History: Occasional Past Drug Use History: None Reported - Past Family History Mother Family Medical History: Cancer Additional Family Medical History / Comment(s): lung CA with thoracotomy Father Family Medical History: Myocardial Infarction (SD) Additional Family Medical History / Comment(s): passed in 2007 Medications and Allergies Home Medications Medication Instructions Recorded Confirmed Type Aspirin 81 mg PO DAILY #30 chew 02/06/19 08/09/21 Rx Clopidogrel Bisulfate [Plavix] 75 mg PO DAILY #30 tab 02/06/19 08/09/21 Rx Metoprolol Tartrate [Lopressor] 25 mg PO BID #60 tab 02/06/19 08/09/21 Rx Nitroglycerin Sl Tabs [Nitrostat] 0.4 mg SUBLINGUAL Q5M PRN tab 10/06/19 08/09/21 Rx Ascorbic Acid [Vitamin C] 1,000 mg PO DAILY 08/09/21 08/09/21 History Aspirin EC [Ecotrin] 325 mg PO DAILY PRN 08/09/21 08/09/21 History Atorvastatin [Lipitor] 80 mg PO HS 08/09/21 08/09/21 History Cyclobenzaprine [Flexeril] 10 mg PO BID PRN 08/09/21 08/09/21 History Docusate [Colace] 100 mg PO HS 08/09/21 08/09/21 History Glucosamine/Chondritan/Msm/Turmeric 1 tab PO DAILY 08/09/21 08/09/21 History Complex lisinopriL [Zestril] 20 mg PO DAILY 08/09/21 08/09/21 History traMADol HCL 100 mg PO Q6H PRN 08/09/21 08/09/21 History Allergies Allergy/AdvReac Type Severity Reaction Status Date / Time No Known Allergies Allergy Verified 08/09/21 15:43 Physical Examination Osteopathic Statement: *. No significant issues noted on an osteopathic structural exam other than those noted in the History and Physical/Consult. - L Spine: dermatomal strength & reflexes bilateral Strength: hip flexion: 5/5 (His low back he has pain with motion and changing positions. There is no open wounds lacerations or abrasions. His cardiac cath site is intact and stable. Lower extremity 75 strength the dorsal flexion plantar flexion and EHL. 5 out of 5 with hip flexion and extension. No pain with internal/ext) Strength: hip extension: 5/5 (No pain with [employer] rotation is hips. No acute focal deficits lower extremities. Sensory is intact. Eyes calves are soft nontender. Upper extremity is have full active and passive range of motion. Neck is nontender.) Results - Labs Labs: Abnormal Lab Results - Last 24 Hours (Table) 08/10/21 08/10/21 08/11/21 Range/Units 07:08 20:32 06:21 Chloride (98-107) mmol/L Carbon Dioxide (22-30) mmol/L BUN (9-20) mg/dL Glucose (74-99) mg/dL POC Glucose (mg/dL) 183 H 153 H (75-99) mg/dL Cholesterol 242.00 H (0.00-200.00) mg/dL LDL Cholesterol, Calc 170.9 H (0.0-131.0) mg/dL 08/11/21 08/11/21 Range/Units 08:02 11:39 Chloride 108 H (98-107) mmol/L Carbon Dioxide 19 L (22-30) mmol/L BUN 29 H (9-20) mg/dL Glucose 184 H (74-99) mg/dL POC Glucose (mg/dL) 154 H (75-99) mg/dL Cholesterol (0.00-200.00) mg/dL LDL Cholesterol, Calc (0.0-131.0) mg/dL H & H 08/09/21 08/10/21 Range/Units 13:47 07:08 Hgb 17.3 14.8 (13.0-17.5) gm/dL Hct 50.4 45.8 (39.0-53.0) % Coagulation 08/09/21 Range/Units 13:47 INR 0.9 (<1.2) Result Diagrams: 08/10/21 07:08 08/11/21 08:02 - Diagnostic results CT Scan - lumbar: report reviewed, image reviewed (Imaging of his lumbar spine shows a grade 2-3 spondylolisthesis L4 5 with severe facet arthrosis. There is evidence of some disc degeneration and foraminal stenosis L2-3 and L3 4 with some facet arthrosis L5-S1) Assessment and Plan Assessment: Acute myocardial infarction status post cardiac cath position and stenting postoperative day #1, doing well Grade 2-3 spondylolisthesis L4 5 with spinal stenosis and lower extremity radiculopathy, with subacute exacerbation due to a fall almost 8 weeks ago Degenerative disease and facet arthrosis L2-3 and L3 4 and L5-S1 Lower back pain No focal neurologic deficit Plan: Acute myocardial infarction status post cardiac cath position and stenting postoperative day #1, doing well Grade 2-3 spondylolisthesis L4 5 with spinal stenosis and lower extremity radiculopathy, with subacute exacerbation due to a fall almost 8 weeks ago Degenerative disease and facet arthrosis L2-3 and L3 4 and L5-S1 Lower back pain No focal neurologic deficit The patient has been treated appropriately in terms of his cardiac issues and is apparently stable for discharge home today per cardiology and the patient. From an orthopedic spine standpoint I think it is okay for the patient be discharged home today as well. The patient has a significant dynamic spinal listhesis L4 5 with stenosis which is causing him pain in his lower back and his lower extremities. He does not have apparent focal neurologic deficit at this point. He is a candidate for surgical intervention for his lumbar spine. This would likely involves major surgery with decompression and fusion at L4 5 and possibly at adjacent levels as well. I think that he would be candidate for minimally invasive decompression and fusion for his lumbar spine. The surgery itself would not be emergent as he does not have focal neurologic deficits of his lower extremities but given his significant symptoms in his life ability to make progress despite conservative care I think that he will is planning to go ahead with surgery whenever he can be cleared from a cardiac standpoint. He just had a new stent at his cardiac catheterization yesterday and will likely need further care before he is able to have clearance for lumbar surgery. I explained this to him and to his at length. They understand this issue. He'll continue conservative care for his lumbar spine and I can see him back on an outpatient basis for appropriate planning, further workup with likely MRI, and potential scheduling once he is cleared from his cardiac issues. Answered his questions best my ability healing she can understand he is agreeable to plan and is okay from orthopedic spine for discharge home with follow-up outpatient. I will provide him with some pain medication for his low back as well.
[2021-08-11 12:12] VITALS: BP 138/70; PULSE 81; TEMP 97.8
== END 2021-08-11 14:09 | disposition home or self-care (01) | DRG 247 ==
LOC: EC 13:03 → 3SCARD 16:07 → OBSVTOIN 08-10 09:43
PROVIDERS: ADMIT Hospitalist; ATTEND Hospitalist
PROC: 4A023N7 Measurement of Cardiac Sampling and Pressure, Left Heart, Percutaneous Approach (ICD-10-PCS; principal; 2021-08-10 08:30)
PROC: 027034Z Dilation of Coronary Artery, One Artery with Drug-eluting Intraluminal Device, Percutaneous Approach (ICD-10-PCS; principal; 2021-08-10 08:30)
PROC: B2111ZZ Fluoroscopy of Multiple Coronary Arteries using Low Osmolar Contrast (ICD-10-PCS; principal; 2021-08-10 08:30)
DX: I21.4 Non-ST elevation (NSTEMI) myocardial infarction (principal); J98.11 Atelectasis; E66.9 Obesity, unspecified; E78.5 Hyperlipidemia, unspecified; G47.30 Sleep apnea, unspecified; I10 Essential (primary) hypertension; I25.10 Atherosclerotic heart disease of native coronary artery without angina pectoris; M51.16 Intervertebral disc disorders with radiculopathy, lumbar region; M48.061 Spinal stenosis, lumbar region without neurogenic claudication; M43.16 Spondylolisthesis, lumbar region; Z91.81 History of falling; W10.9XXA Fall (on) (from) unspecified stairs and steps, initial encounter; Z20.822 Contact with and (suspected) exposure to COVID-19; Z68.31 Body mass index [BMI] 31.0-31.9, adult; R79.1 Abnormal coagulation profile; Z90.89 Acquired absence of other organs; Z98.890 Other specified postprocedural states; Z95.5 Presence of coronary angioplasty implant and graft; Z79.02 Long term (current) use of antithrombotics/antiplatelets; Z79.82 Long term (current) use of aspirin; Z79.899 Other long term (current) drug therapy; Z80.1 Family history of malignant neoplasm of trachea, bronchus and lung; Z82.49 Family history of ischemic heart disease and other diseases of the circulatory system
CPT/HCPCS: 36415; 71275; 72131; 80053; 80061; 81003; 82550; 83735; 84484; 85025; 85379; 85610; 85730; 87635; 93005; 93306; 93458; 94760; 96361; 96374; 96375; 99285

== ENCOUNTER → 2021-11-12 | Outpatient (CLI) | payer OTHER ==
--- NOTE | 2021-11-12 18:40 | MR ---
EXAMINATION TYPE: MR lumbar spine wo con DATE OF EXAM: 11/12/2021 COMPARISON: CT lumbar spine August 09, 2021 HISTORY: Low back pain, numbness down right leg. TECHNIQUE: Multiplanar, multisequence imaging of the lumbar spine is performed without IV contrast. FINDINGS: Exam slightly suboptimal as there is motion artifact related to patient inability to hold b reath. Sagittal images of the lumbar spine show vertebral body height to remain satisfactory. Grade 2 anterolisthesis L4 on L5 redemonstrated. Mild height loss involving the T11 vertebra redemonstrated. Multilevel disc desiccation with moderate to advanced disc space narrowing L4-L5 level. The conus me dullaris is normal in position and signal ending inferior T12 level. The bone marrow signal intensit y is within normal limits. Axial images show T12-L1 level to appear within normal limits. Axial images at L1-L2 level mild/moderate broad disc bulge and mild facet arthropathy. Mild effacemen t of the anterior thecal sac. Mild right-sided neural foraminal narrowing. Axial images at L2-L3 level shows mild facet arthropathy bilaterally. Patent spinal canal. Axial images at L3-L4 level shows moderate to advanced facet arthropathy and ligamentum flavum hypert rophy effacing the posterior lateral thecal sac. Mild right greater than left bilateral neural forami nal narrowing. Axial images at L4-L5 level levels show mild/moderate facet arthropathy bilaterally. Spinal canal is grossly preserved. There is moderate to severe bilateral neural foraminal narrowing due to spondyloli sthesis encroaching on both L4 nerve at the foraminal level sagittal image 6 and 14 for reference. Axial images at L5-S1 level mild/moderate facet arthropathy bilaterally. There is focal right paracen tral disc protrusion effacing the anterolateral thecal sac. There is mild bilateral neural foraminal narrowing seen. Paraspinal muscle bulk is preserved. A round 1.0 cm T2 hyperintense lesion medially left kidney favor s is consistent with benign thin-walled cyst. Larger thin-walled cysts in left kidney are better seen on recent CT. IMPRESSION: Multilevel degenerative changes in lumbar spine as detailed above. Significant spondyloli sthesis L4-L5 level is redemonstrated causing effacement of bilateral L4 nerves.
== END | disposition home or self-care (01) ==
LOC: RADMRIMAIN 16:33
DX: M51.36 Other intervertebral disc degeneration, lumbar region (principal); M43.16 Spondylolisthesis, lumbar region
CPT/HCPCS: 72148

== ENCOUNTER 2023-05-06 14:09 | Inpatient (IN) | payer OTHER ==
[2023-05-06] MEDS ORDERED: HYDROcodone/APAP 7.5-325MG 1 EACH TAB PO ONE (14:25)
--- NOTE | 2023-05-06 14:26 | ED ---
General Adult HPI - General Source: patient, RN notes reviewed Mode of arrival: wheelchair Limitations: no limitations <Bernard Raphael - Last Filed: 05/06/23 14:25> - History of Present Illness Radiation: non-radiation Consistency: constant Improves with: none Worsens with: none Associated Symptoms: denies other symptoms <Bartolo Mishra - Last Filed: 05/06/23 19:26> - General Chief complaint: Recheck/Abnormal Lab/Rx Stated complaint: Hypertension Time Seen by Provider: 05/06/23 14:25 - History of Present Illness Initial comments: 57-year-old male presents emergency Department chief complaint hypertension. Patient states that he went to urgent care for dental fracture dental pain they found to be very hypertensive. Patient to for further evaluation. Patient states that he did not take his lisinopril or metoprolol this morning. Denies any chest pain or shortness of breath. (Bernard Raphael) This is a 57-year-old male to the emergency department for evaluation today. Patient presents today for evaluation of dental pain severe and blood pressure being significantly high. Patient doesn't regularly take medications as directed. Has had history of severely elevated blood pressure in the past. Patient has no current chest pain no shortness of breath no headache and no neurological findings. (Bartolo Mishra) - Related Data Home Medications Medication Instructions Recorded Confirmed Ascorbic Acid [Vitamin C] 1,000 mg PO DAILY 08/09/21 08/09/21 Atorvastatin [Lipitor] 80 mg PO HS 08/09/21 08/09/21 Cyclobenzaprine [Flexeril] 10 mg PO BID PRN 08/09/21 08/09/21 Docusate [Colace] 100 mg PO HS 08/09/21 08/09/21 Glucosamine/Chondritan/Msm/Turmeric 1 tab PO DAILY 08/09/21 08/09/21 Complex lisinopriL [Zestril] 20 mg PO DAILY 08/09/21 08/09/21 traMADol HCL 100 mg PO Q6H PRN 08/09/21 08/09/21 Previous Rx's Medication Instructions Recorded Aspirin 81 mg PO DAILY #30 chew 02/06/19 Clopidogrel Bisulfate [Plavix] 75 mg PO DAILY #30 tab 02/06/19 Metoprolol Tartrate [Lopressor] 25 mg PO BID #60 tab 02/06/19 Nitroglycerin Sl Tabs [Nitrostat] 0.4 mg SUBLINGUAL Q5M PRN tab 10/06/19 HYDROcodone/APAP 5-325MG [[place] 5] 1 each PO Q8HR PRN #21 tab 08/11/21 hydroCHLOROthiazide 25 mg PO DAILY 30 Days #30 tablet 08/11/21 predniSONE 10 mg PO DIRECTED #30 tab 08/11/21 Allergies Allergy/AdvReac Type Severity Reaction Status Date / Time No Known Allergies Allergy Verified 05/06/23 14:21 Review of Systems ROS Other: All systems not noted in ROS Statement are negative. <Bernard Raphael - Last Filed: 05/06/23 14:25> ROS Other: All systems not noted in ROS Statement are negative. <Bartolo Mishra - Last Filed: 05/06/23 19:26> ROS Statement: Those systems with pertinent positive or pertinent negative responses have been documented in the HPI. Past Medical History Past Medical History: Coronary Artery Disease (CAD), Chest Pain / Angina, Hypertension, Sleep Apnea/CPAP/BIPAP Additional Past Medical History / Comment(s): SOB w/exertion. History of lumbar spondylolisthesis since high school with low back pain and lower extremity radiculopathy, History of Any Multi-Drug Resistant Organisms: None Reported Past Surgical History: Heart Catheterization With Stent, Tonsillectomy Additional Past Surgical History / Comment(s): "UPPP" for sleep apnea, stents x 3. Past Anesthesia/Blood Transfusion Reactions: No Reported Reaction Date of Last Stent Placement:: 02-05-19 Past Psychological History: No Psychological Hx Reported Smoking Status: Never smoker Past Alcohol Use History: Occasional Past Drug Use History: None Reported - Past Family History Mother Family Medical History: Cancer Additional Family Medical History / Comment(s): lung CA with thoracotomy Father Family Medical History: Myocardial Infarction ([place]) Additional Family Medical History / Comment(s): passed in 2007 <Bernard Raphael - Last Filed: 05/06/23 14:25> General Exam Limitations: no limitations <Bernard Raphael - Last Filed: 05/06/23 14:25> General appearance: alert, in no apparent distress Head exam: Present: atraumatic, normocephalic, normal inspection Eye exam: Present: normal appearance, PERRL, EOMI. Absent: scleral icterus, conjunctival injection, periorbital swelling ENT exam: Present: normal exam, mucous membranes moist Neck exam: Present: normal inspection. Absent: tenderness, meningismus, lympha denopathy Respiratory exam: Present: normal lung sounds bilaterally. Absent: respiratory distress, wheezes, rales, rhonchi, stridor Cardiovascular Exam: Present: regular rate, normal rhythm, normal heart sounds. Absent: systolic murmur, diastolic murmur, rubs, gallop, clicks GI/Abdominal exam: Present: soft, normal bowel sounds. Absent: distended, tenderness, guarding, rebound, rigid Extremities exam: Present: normal inspection, full ROM, normal capillary refill. Absent: tenderness, pedal edema, joint swelling, calf tenderness Back exam: Present: normal inspection Neurological exam: Present: alert, oriented X3, CN II-XII intact Psychiatric exam: Present: normal affect, normal mood Skin exam: Present: warm, dry, intact, normal color. Absent: rash <Bartolo Mishra - Last Filed: 05/06/23 19:26> - General Exam Comments Initial Comments: Visual Physical Exam Vital signs reviewed General: Well-appearing, nontoxic, no acute distress. Head: Normocephalic, atraumatic Eyes: PERRLA, EOMI ENT: Airway patent Chest: Nonlabored breathing Skin: No visual rash, normal skin tone Neuro: Alert and oriented 3 Musculoskeletal: No gross abnormalities (Bernard Raphael) Course <Bartolo Mishra - Last Filed: 05/06/23 19:26> Vital Signs 05/06/23 05/06/23 14:21 18:21 Temperature 97.9 F Pulse Rate 61 62 Respiratory 18 20 Rate Blood Pressure 238/109 255/127 O2 Sat by Pulse 97 96 Oximetry - Reevaluation(s) Reevaluation #1: 05/06/23 19:25 Medical record is reviewed (Bartolo Mishra) Reevaluation #2: 05/06/23 19:25 Patient symptoms are improved (Bartolo Mishra) Reevaluation #3: 05/06/23 19:26 Patient informed of results questions answered (Bartolo Mishra) Reevaluation #4: 05/06/23 19:26 Was pt. sent in by a medical professional or institution (, JIMMY, TUNNEL ELASTIC OPERATOR LOCKSTITCH, urgent care, hospital, or usp...) When possible be specific @ -no Did you speak to anyone other than the patient for history (EMS, parent, family, police, friend...)? What history was obtained from this source @ -no Did you review nursing and triage notes (agree or disagree)? Why? @ -agree Are old charts reviewed (outside hosp., previous admission, EMS record, old EKG, old radiological studies, urgent care reports/EKG's, usp records)? Report findings @ -yes Differential Diagnosis (chest pain, altered mental status, abdominal pain women, abdominal pain men, vaginal bleeding, weakness, fever, dyspnea, syncope, headache, dizziness, GI bleed, back pain, seizure, CVA, palpatations, mental health, musculoskeletal)? @ -prior EKG interpreted by me (3pts min.). @ -yes X-rays interpreted by me (1pt min.). @ -yes CT interpreted by me (1pt min.). @ -no U/S interpreted by me (1pt. min.). @ -no What testing was considered but not performed or refused? (CT, X-rays, U/S, labs)? Why? @ -none What meds were considered but not given or refused? Why? @ -none Did you discuss the management of the patient with other professionals (dante eagle i.e. , JIMMY, TUNNEL ELASTIC OPERATOR LOCKSTITCH, lab, RT, psych nurse, high school social studies tutor, telehealth director, teacher, tax compliance officer, bottle caser)? Give summary @ -no Was smoking cessation discussed for >3mins.? @ -no Was critical care preformed (if so, how long)? @ -no Were there social determinants of health that impacted care today? How? (Homelessness, low income, unemployed, alcoholism, drug addiction, transportation, low edu. Level, literacy, decrease access to med. care, custodial, rehab)? @ -none Was there de-escalation of care discussed even if they declined (Discuss DNR or withdrawal of care, Hospice)? DNR status @ -no What co-morbidities impacted this encounter? (DM, HTN, Smoking, COPD, CAD, Cancer, CVA, ARF, Chemo, Hep., AIDS, mental health diagnosis, sleep apnea, morbid obesity)? @ -none Was patient admitted / discharged? Hospital course, mention meds given and route, prescriptions, significant lab abnormalities, going to OR and other pertinent info. @ - Undiagnosed new problem with uncertain prognosis? @ -no Drug Therapy requiring intensive monitoring for toxicity (Heparin, Nitro, Insulin, Cardizem)? @ -no Were any procedures done? @ -no Diagnosis/symptom? @ - Acute, or Chronic, or Acute on Chronic? @ -Acute Uncomplicated (without systemic symptoms) or Complicated (systemic symptoms)? @ -Complicated Side effects of treatment? @ -no Exacerbation, Progression, or Severe Exacerbation? @ -exacerbation Poses a threat to life or bodily function? How? (Chest pain, [place], [place], pneumonia, PE, COPD, DKA, ARF, appy, cholecystitis, CVA, Diverticulitis, Homicidal, Suicidal, threat to staff... and all critical care pts) @ -yes (Bartolo Mishra) - Consultations Consultation #1: Spoke with sound who agrees to admit this patient (Bartolo Mishra) Medical Decision Making <Bernard Raphael - Last Filed: 05/06/23 14:25> - Lab Data Result diagrams: 05/06/23 14:48 05/06/23 14:48 <Bartolo Mishra - Last Filed: 05/06/23 19:26> - Medical Decision Making I performed a quick note portion of this Chart signed Bernard Raphael PA-C (Bernard Raphael) 53 male to the ER will be admitted for hypertensive urgency severe. Patient also recurrent dental pain we'll give pain control patient be admitted for blood pressure control (Bartolo Mishra) - Lab Data Lab Results 05/06/23 05/06/23 Range/Units 14:48 14:48 WBC 8.4 (3.8-10.6) k/uL RBC 4.87 (4.30-5.90) m/uL Hgb 16.0 (13.0-17.5) gm/dL Hct 47.1 (39.0-53.0) % MCV 96.7 (80.0-100.0) fL MCH 32.9 (25.0-35.0) pg MCHC 34.0 (31.0-37.0) g/dL RDW 13.3 (11.5-15.5) % Plt Count 232 (150-450) k/uL MPV 8.1 Neutrophils % 73 % Lymphocytes % 16 % Monocytes % 6 % Eosinophils % 2 % Basophils % 1 % Neutrophils # 6.1 (1.3-7.7) k/uL Lymphocytes # 1.3 (1.0-4.8) k/uL Monocytes # 0.5 (0-1.0) k/uL Eosinophils # 0.2 (0-0.7) k/uL Basophils # 0.0 (0-0.2) k/uL Sodium 136 L (137-145) mmol/L Potassium 4.4 (3.5-5.1) mmol/L Chloride 104 (98-107) mmol/L Carbon Dioxide 22 (22-30) mmol/L Anion Gap 10 mmol/L BUN 12 (9-20) mg/dL Creatinine 0.75 (0.66-1.25) mg/dL Est GFR (CKD-EPI)AfAm >90 (>60 ml/min/1.73 sqM) Est GFR (CKD-EPI)NonAf >90 (>60 ml/min/1.73 sqM) Glucose 118 H (74-99) mg/dL Calcium 9.1 (8.4-10.2) mg/dL Total Bilirubin 1.2 (0.2-1.3) mg/dL AST 48 (17-59) U/L ALT 53 H (4-49) U/L Alkaline Phosphatase 71 (38-126) U/L Total Protein 7.6 (6.3-8.2) g/dL Albumin 4.7 (3.5-5.0) g/dL Disposition <Bernard Raphael - Last Filed: 05/06/23 14:25> Is patient prescribed a controlled substance at d/c from ED?: No Time of Disposition: 19:25 <Bartolo Mishra - Last Filed: 05/06/23 19:26> Clinical Impression: Hypertensive urgency, Tooth pain Disposition: ADMITTED IP TO THIS HOSP Condition: Serious Referrals: [facility],Clinic [Primary Care Provider] - 1-2 days
[2023-05-06 15:15] LABS: Basophils % (A) 1 %; Eosinophils # (A) 0.2 k/uL (0-0.7); Eosinophils % (A) 2 %; HCT 47.1 % (39.0-53.0); Lymphocytes # (A) 1.3 k/uL (1.0-4.8); Lymphocytes % (A) 16 %; MCH 32.9 pg (25.0-35.0); MCV 96.7 fL (80.0-100.0); Mean Platelet Volume 8.1; Monocytes # (A) 0.5 k/uL (0-1.0); Monocytes % (A) 6 %; Neutrophils # (A) 6.1 k/uL (1.3-7.7); Neutrophils % (A) 73 %; Platelet Count 232 k/uL (150-450); RBC 4.87 m/uL (4.30-5.90); RDW 13.3 % (11.5-15.5); WBC 8.4 k/uL (3.8-10.6)
[2023-05-06 15:21] LABS: ALT 53 U/L (4-49); African American GFR (CKD) >90 (>60 ml/min/1.73 sqM); Anion Gap 10 mmol/L; Blood Urea Nitrogen 12 mg/dL (9-20); Calcium 9.1 mg/dL (8.4-10.2); Carbon Dioxide 22 mmol/L (22-30); Chloride 104 mmol/L (98-107); Glucose 118 mg/dL (74-99); Non-African American GFR(CKD) >90 (>60 ml/min/1.73 sqM); Sodium 136 mmol/L (137-145); Total Bilirubin 1.2 mg/dL (0.2-1.3)
[2023-05-06 15:25] LABS: AST 48 U/L (17-59); Albumin 4.7 g/dL (3.5-5.0); Alkaline Phosphatase 71 U/L (38-126); Potassium 4.4 mmol/L (3.5-5.1); Total Protein 7.6 g/dL (6.3-8.2)
[2023-05-06] MEDS ORDERED: ONDANSETRON 4 MG/2 ML VIAL IVP PRN (19:20)
[2023-05-06] MEDS ORDERED: NALOXONE 0.4 MG/ML 1 ML VIAL IV PRN (19:20)
[2023-05-06] MEDS ORDERED: LABETALOL 5 MG/ML VIAL MDV IVP STA (19:20)
[2023-05-06] MEDS ORDERED: HYDROmorphone 1 MG/ML 1 ML SYRINGE IVP STA (19:20)
[2023-05-06] MEDS ORDERED: hydrALAZINE HCL 20 MG/ML 1 ML VIAL IVP STA (19:20)
[2023-05-06] MEDS ORDERED: SODIUM CHLORIDE 0.9% 1,000 ML IV STA ×2 (19:20)
[2023-05-06] MEDS ORDERED: SODIUM CHLORIDE 0.9% 1,000 ML IV SCH (19:30)
[2023-05-06] MEDS: HYDROmorphone 1 MG/ML 1 ML SYRINGE IVP PRN (23:31)
[2023-05-07] MEDS ORDERED: ATORVASTATIN 80 MG TAB PO SCH (00:30)
--- NOTE | 2023-05-07 00:53 | P.HPIM ---
History of Present Illness H&P Date: 05/06/23 Chief Complaint: hypertension 57 year old male with hypertension he has been having a cracked tooth for few weeks now, causing lots of pain that has gotten worse over past couple days, he decided to see a doctor today, and his suggested going to urgent care to help with the pain, however, his vital signs showed elevated SBP in the 230-250 range while there. Urgent care suggested he goes to the ER for evaluation. he denies any associated headache, changes in vision or hearing, or any new focal neuro deficits. denies any fever, chills, or URI symptoms. denies any chest pain or trouble breathing. denies any abd pain or changes in bowel or urinary habits. he reports history of hypertension for which he takes lisinopril and metoprolol and claims to be compliant with all. denies any smoking , illicit drugs or alcohol . review of systems Pertinent positives as noted in HPI. All other systems were reviewed and are negative on exam Constitutional: No acute distress, conversant, pleasant Eyes: Anicteric sclerae, moist conjunctiva, Pupils equal round reactive to light ENMT: NC/AT Oropharynx clear, there is erythema and some gingival swelling over the right lower molar no drainage, positive cracked tooth Neck: Supple, no masses, or JVD No carotid bruits No thyromegaly Lungs: Clear to auscultation Clear to percussion Normal respiratory effort, no accessory muscle use Cardiovascular: Heart regular in rate and rhythm, No murmurs, gallops, or rubs No peripheral edema Abdominal: Soft Nontender, no guarding, rebound or rigidity Abdomen moving with respiration Normoactive bowel sounds No hepatomegaly, No splenomegaly No palpable mass No abdominal wall hernia noted Skin: Normal temperature, tone, texture, turgor No induration No subcutaneous nodules No rash, lesions No ulcers Extremities: No digital cyanosis No clubbing Pedal pulses intact and symmetrical Radial pulses intact and symmetrical No calf tenderness Psychiatric: Alert and oriented to person, place and time Appropriate affect fair judgement Neuro Muscles Strength 5/5 in all 4 extremities Sensation to light touch grossly present throughout Cranial nerves II-XII grossly intact Lymphatics: no palpable cervical or supraclavicular lymph nodes Past Medical History Past Medical History: Coronary Artery Disease (CAD), Chest Pain / Angina, Hypertension, Sleep Apnea/CPAP/BIPAP Additional Past Medical History / Comment(s): . History of lumbar spondylolisthesis since high school with low back pain and lower extremity radiculopathy, History of Any Multi-Drug Resistant Organisms: None Reported Past Surgical History: Heart Catheterization With Stent, Tonsillectomy Additional Past Surgical History / Comment(s): "UPPP" for sleep apnea, stents x 4. Past Anesthesia/Blood Transfusion Reactions: No Reported Reaction Date of Last Stent Placement:: 08/09/21 Past Psychological History: No Psychological Hx Reported Smoking Status: Never smoker Past Alcohol Use History: Occasional Past Drug Use History: None Reported - Past Family History Mother Family Medical History: Cancer Additional Family Medical History / Comment(s): lung CA with thoracotomy Father Family Medical History: Myocardial Infarction ([place]) Additional Family Medical History / Comment(s): passed in 2007 Medications and Allergies Home Medications Medication Instructions Recorded Confirmed Type Aspirin 81 mg PO DAILY #30 chew 02/06/19 05/06/23 Rx Metoprolol Tartrate [Lopressor] 25 mg PO BID #60 tab 02/06/19 05/06/23 Rx Nitroglycerin Sl Tabs [Nitrostat] 0.4 mg SUBLINGUAL Q5M PRN tab 10/06/19 05/06/23 Rx Ascorbic Acid [Vitamin C] 1,000 mg PO DAILY 08/09/21 05/06/23 History lisinopriL [Zestril] 20 mg PO DAILY 08/09/21 05/06/23 History Atorvastatin [Lipitor] 80 mg PO HS 05/06/23 05/06/23 History Fish Oil/Dha/Epa [Fish Oil 1,200 1 cap PO DAILY 05/06/23 05/06/23 History mg Fish Oil] Sildenafil Citrate 100 mg PO DAILY PRN 05/06/23 05/06/23 History Turmeric Root Extract [Turmeric] 500 mg PO DAILY 05/06/23 05/06/23 History Allergies Allergy/AdvReac Type Severity Reaction Status Date / Time No Known Allergies Allergy Verified 05/06/23 14:21 Physical Exam Vitals: Vital Signs Temp Pulse Pulse Resp BP BP Pulse Ox 05/06/23 23:30 72 16 188/88 97 05/06/23 21:28 98.5 F 85 16 159/83 97 05/06/23 20:00 88 18 177/99 95 05/06/23 18:21 62 20 255/127 96 05/06/23 14:21 97.9 F 61 18 238/109 97 Intake and Output 05/06/23 05/06/23 05/07/23 14:59 22:59 06:59 Other: Weight 111.13 kg 111.13 kg Results CBC & Chem 7: 05/06/23 14:48 05/06/23 14:48 Labs: Abnormal Lab Results - Last 24 Hours (Table) 05/06/23 Range/Units 14:48 Sodium 136 L (137-145) mmol/L Glucose 118 H (74-99) mg/dL ALT 53 H (4-49) U/L Thrombosis Risk Factor Assmnt - Choose All That Apply Any of the Below Risk Factors Present?: Yes Each Factor Represents 1 point: Age 41-60 years Other Risk Factors: No Other congenital or acquired thrombophilia - If yes, enter type in comment: No Thrombosis Risk Factor Assessment Total Risk Factor Score: 1 Thrombosis Risk Factor Assessment Level: Low Risk Assessment and Plan Assessment: 57 year old male coming in with cracked tooth, toothache and elevated blood pressure, no focal neurodeficits. I discussed the case with ED doc and I accepted the admission for uncontrolled hypertension and pain control with anticipated length of stay < 2 midnights malignant hypertension goal lowering initial MAP by 25% only , initial MAP 169, currently 121 presenting SBP was 255 Goal systolic blood pressure around 180-190, I will Give PRN clonidine for SBP >200 tonight resume metoprolol and lisinopril consider adjusting blood pressure meds in AM , if it continues to be uncontrolled no evidence of end organ damage trops negative renal function unremarkable BUN 12, Cr 0.75, Na 136 , K 4.4 Hgb 16, WBC 8.4 unremarkable right lower molar tooth infection and cracked tooth consider dentist visit as OP initiate on Augmentin 875/125 mg BID PO pain control with dilaudid as ordered in the ED full code DVT PPX mechanical
[2023-05-07] MEDS: AMOXIC-POT CLAV 875-125MG 1 EACH TAB PO SCH ×2 (01:31→08:38)
[2023-05-07] MEDS: METOPROLOL TARTRATE 25 MG TAB PO SCH ×2 (01:31→08:38)
[2023-05-07] MEDS: HYDROmorphone 1 MG/ML 1 ML SYRINGE IVP PRN (05:10)
[2023-05-07 08:34] LABS: Basophils % (A) 0 %; Eosinophils # (A) 0.1 k/uL (0-0.7); Eosinophils % (A) 1 %; HCT 44.3 % (39.0-53.0); HGB 14.7 gm/dL (13.0-17.5); Lymphocytes % (A) 12 %; MCH 32.6 pg (25.0-35.0); MCHC 33.1 g/dL (31.0-37.0); MCV 98.3 fL (80.0-100.0); Mean Platelet Volume 7.7; Monocytes # (A) 0.6 k/uL (0-1.0); Monocytes % (A) 7 %; Neutrophils # (A) 6.5 k/uL (1.3-7.7); Neutrophils % (A) 77 %; Platelet Count 213 k/uL (150-450); RBC 4.51 m/uL (4.30-5.90); RDW 12.7 % (11.5-15.5); WBC 8.5 k/uL (3.8-10.6)
[2023-05-07 08:49] LABS: ALT 41 U/L (4-49); AST 27 U/L (17-59); African American GFR (CKD) >90 (>60 ml/min/1.73 sqM); Alkaline Phosphatase 53 U/L (38-126); Anion Gap 9 mmol/L; Blood Urea Nitrogen 10 mg/dL (9-20); Calcium 8.8 mg/dL (8.4-10.2); Carbon Dioxide 24 mmol/L (22-30); Chloride 102 mmol/L (98-107); Glucose 140 mg/dL (74-99); Magnesium 2.2 mg/dL (1.6-2.3); Non-African American GFR(CKD) >90 (>60 ml/min/1.73 sqM); Phosphorus 3.6 mg/dL (2.5-4.5); Potassium 4.1 mmol/L (3.5-5.1); Sodium 135 mmol/L (137-145); Total Bilirubin 1.1 mg/dL (0.2-1.3); Total Protein 6.5 g/dL (6.3-8.2)
[2023-05-07] MEDS ORDERED: lisinopriL 20 MG TAB PO SCH (09:00)
[2023-05-07] MEDS ORDERED: ASPIRIN 81 MG PO SCH (09:00)
--- NOTE | 2023-05-07 13:28 | P.DS ---
Providers Date of admission: 05/06/23 19:22 Expected date of discharge: 05/07/23 Attending physician: Lela Alcazar MD Consults: 05/06/23 19:20 Consult Physician Routine Consulting Provider: Fernandez Dominguez Consult Reason/Comments: HTN Do you want consulting provider notified?: Yes Primary care physician: [facility] Course: Patient is a 57 year old M with PMH of CAD, HTN, sleep apnea, dental pain from a cracked tooth presents to the ED for hypertensive urgency. He was evaluated at urgent care today with regard to his dental pain and was advised to come to the ED for elevated BP. In the ED, he was noted to be hypertensive with BP of 238/109. Vital signs otherwise stable. CBC unremarkable. CMP showing sodium 136, glucose 118, ALT 53. Troponin less than 0.0122. He was given labetalol and hydralazine IV and admitted for further management of symptoms. His dental pain was well-controlled with Dilaudid as needed. He had no headache, focal neurologic deficits, chest pain, dizziness, shortness of breath or palpitations. His BP improved with pain control. He was restarted on his home dose of metoprolol and lisinopril. Patient was seen and examined this morning. States that his is trying to get him into OMFS appointment in a couple of days. His BP is 160/82. Reports feeling back to baseline and denies any complaints. Reports his pain is 5 out of 10 in severity. Plans discharged home today to continue metoprolol and lisinopril. He will be prescribed Augmentin for 10 days and Percocet 10 mg by mouth every 4 hours as needed for severe pain. Advised to follow-up with OMFS within 3 days of discharge. Patient verbalized understanding of the plan. General: non toxic, no distress, appears at stated age Derm: warm, dry Head: atraumatic, normocephalic, symmetric Eyes: EOMI, no lid lag, anicteric sclera Cardiovascular: S1S2 reg, no murmur Lungs: CTA bilateral, no rhonchi, no rales , no accessory muscle use Ext: no gross muscle atrophy, no edema, no contractures Neuro: no focal neuro deficits Psych: Alert, oriented, appropriate affect Discharge diagnoses: Hypertensive urgency Right lower molar tooth infection and cracked tooth History of CAD Sleep apnea This complex discharge took 35 minutes to complete. Patient Condition at Discharge: Stable Plan - Discharge Summary Discharge Rx Participant: No New Discharge Prescriptions: New Amoxic-Pot Clav 875-125Mg [Augmentin 875-125] 1 each PO Q12HR #20 tab oxyCODONE HCL/ACETAMINOPHEN [Percocet 10-325 mg] 1 tab PO Q4HR PRN 3 Days #18 tab PRN Reason: Pain Continue Aspirin 81 mg PO DAILY #30 chew Metoprolol Tartrate [Lopressor] 25 mg PO BID #60 tab Nitroglycerin Sl Tabs [Nitrostat] 0.4 mg SUBLINGUAL Q5M PRN tab PRN Reason: Chest Pain lisinopriL [Zestril] 20 mg PO DAILY Turmeric Root Extract [Turmeric] 500 mg PO DAILY Fish Oil/Dha/Epa [Fish Oil 1,200 mg Fish Oil] 1 cap PO DAILY Ascorbic Acid [Vitamin C] 1,000 mg PO DAILY Atorvastatin [Lipitor] 80 mg PO HS Sildenafil Citrate 100 mg PO DAILY PRN PRN Reason: E.D. Discharge Medication List Aspirin 81 mg PO DAILY #30 chew 02/06/19 [Rx] Metoprolol Tartrate [Lopressor] 25 mg PO BID #60 tab 02/06/19 [Rx] Nitroglycerin Sl Tabs [Nitrostat] 0.4 mg SUBLINGUAL Q5M PRN tab 10/06/19 [Rx] Ascorbic Acid [Vitamin C] 1,000 mg PO DAILY 08/09/21 [History] lisinopriL [Zestril] 20 mg PO DAILY 08/09/21 [History] Atorvastatin [Lipitor] 80 mg PO HS 05/06/23 [History] Fish Oil/Dha/Epa [Fish Oil 1,200 mg Fish Oil] 1 cap PO DAILY 05/06/23 [History] Sildenafil Citrate 100 mg PO DAILY PRN 05/06/23 [History] Turmeric Root Extract [Turmeric] 500 mg PO DAILY 05/06/23 [History] Amoxic-Pot Clav 875-125Mg [Augmentin 875-125] 1 each PO Q12HR #20 tab 05/07/23 [Rx] oxyCODONE HCL/ACETAMINOPHEN [Percocet 10-325 mg] 1 tab PO Q4HR PRN 3 Days #18 ta b 09/14/23 [Rx] Follow up Appointment(s)/Referral(s): Gatito Hampton MD [Medical Doctor] - 1 Week (The office will call you with an appointment time and date. ) Bartolo Amaral DDS [STAFF PHYSICIAN] - 3 Days (Brea from [facility] will call you with an appointment time and date. ) [facility],Clinic [Primary Care Provider] - 05/15/23 3:00 pm Patient Instructions/Handouts: Dental Abscess (ED), Hypertension (DC) Activity/Diet/Wound Care/Special Instructions: Brea from [facility] will call you with an appointment time and date. Discharge Disposition: HOME SELF-CARE
--- NOTE | 2023-05-07 15:30 | P.CRDCN ---
History of Present Illness Consult date: 05/07/23 Consult reason: hypertension History of present illness: History of present illness: This is a 57-year-old male previously seen in the office by Dr. Suggs last seen on 09/2021 with past medical history of hypertension, hypercholesterolemia, coronary artery disease with previous stent of the 2 diagonal branches and OM branch of the circumflex, mid LAD. Patient presented to the hospital due to elevated blood pressure readings. Patient has an abscess in his tooth and has been seen by his dentist and scheduled for oral surgeon on Thursday. He went to the urgent care for dental fracture and pain and was found there to be hypertensive and not taken his lisinopril or metoprolol. Patient denies having any chest pain and no shortness of breath. Patient has been resumed back on his home cardiac medications and his blood pressure is stable. CBC is unremarkable. Sodium 135, potassium 4.1, creatinine 0.77 otherwise CMP unremarkable. Troponin negative 2. Home cardiac medications: Home cardiac medications: Aspirin 81 mg daily, Lipitor 80 mg at bedtime, lisinopril 20 mg daily, Lopressor 25 mg twice daily, Nitrostat as needed. Review Of Systems: At the time of my evaluation: Constitutional: No fever, no chills. No weakness, fatigue or lethargy. EENT: No headache. No dizziness. Reports tooth pain Lungs: No shortness of breath, cough, no sputum production. No wheezing. Cardiovascular: No chest pain, no lower extremity edema. No palpitations. No paroxysmal nocturnal dyspnea. No orthopnea. No lightheadedness or dizziness. No syncopal episodes. Abdominal: No abdominal pain. No nausea, vomiting. No diarrhea. No con stipation. No bloody or tarry stools. Genitourinary: No dysuria. No urinary retention. Musculoskeletal: No myalgias. No muscle weakness, no frequent falls. No back pain. No neck pain. Integumentary: No wounds. No rash. No unusual bruising. Neurologic: No aphasia. No facial droop. No change in mentation. No head injury. No headache. Physical examination: Gen: This is a 57-year-old male. He is resting bed appears to be in no acute distress. VS: reviewed HEENT: Head is atraumatic, normocephalic. Pupils equal, round. Sclerae is anicteric. NECK: Supple. No JVD. LUNGS: Clear to auscultation. No wheezes or rhonchi. No intercostal retractions. HEART: Regular rate and rhythm. No murmur. ABDOMEN: Soft No tenderness. EXTREMITIES: No pedal edema. No calf tenderness. NEUROLOGICAL: Patient is awake, alert and oriented x3. Assessment: Uncontrolled hypertension Tooth abscess Hypertension Hyperlipidemia Coronary artery disease Plan: Continue patient's home cardiac medications Patient is cleared for discharge home and may follow-up in the office with Dr. Hampton. Thank you kindly for this consultation. Nurse practitioner note has been reviewed, I agree with documented findings and plan of care. Patient was seen and examined. Past Medical History Past Medical History: Coronary Artery Disease (CAD), Chest Pain / Angina, Hyper tension, Sleep Apnea/CPAP/BIPAP Additional Past Medical History / Comment(s): . History of lumbar spondylolisthesis since high school with low back pain and lower extremity r adiculopathy, History of Any Multi-Drug Resistant Organisms: None Reported Past Surgical History: Heart Catheterization With Stent, Tonsillectomy Additional Past Surgical History / Comment(s): "UPPP" for sleep apnea, stents x 4. Past Anesthesia/Blood Transfusion Reactions: No Reported Reaction Date of Last Stent Placement:: 08/09/21 Past Psychological History: No Psychological Hx Reported Smoking Status: Never smoker Past Alcohol Use History: Occasional Past Drug Use History: None Reported - Past Family History Mother Family Medical History: Cancer Additional Family Medical History / Comment(s): lung CA with thoracotomy Father Family Medical History: Myocardial Infarction ([place]) Additional Family Medical History / Comment(s): passed in 2007 Medications and Allergies Home Medications Medication Instructions Recorded Confirmed Type Aspirin 81 mg PO DAILY #30 chew 02/06/19 05/06/23 Rx Metoprolol Tartrate [Lopressor] 25 mg PO BID #60 tab 02/06/19 05/06/23 Rx Nitroglycerin Sl Tabs [Nitrostat] 0.4 mg SUBLINGUAL Q5M PRN tab 10/06/19 05/06/23 Rx Ascorbic Acid [Vitamin C] 1,000 mg PO DAILY 08/09/21 05/06/23 History lisinopriL [Zestril] 20 mg PO DAILY 08/09/21 05/06/23 History Atorvastatin [Lipitor] 80 mg PO HS 05/06/23 05/06/23 History Fish Oil/Dha/Epa [Fish Oil 1,200 1 cap PO DAILY 05/06/23 05/06/23 History mg Fish Oil] Sildenafil Citrate 100 mg PO DAILY PRN 05/06/23 05/06/23 History Turmeric Root Extract [Turmeric] 500 mg PO DAILY 05/06/23 05/06/23 History Amoxic-Pot Clav 875-125Mg 1 each PO Q12HR #20 tab 05/07/23 Rx [Augmentin 875-125] oxyCODONE HCL/ACETAMINOPHEN 1 tab PO Q4HR PRN 3 Days #18 tab 05/07/23 Rx [Percocet 10-325 mg] Allergies Allergy/AdvReac Type Severity Reaction Status Date / Time No Known Allergies Allergy Verified 05/06/23 14:21 Physical Exam Vitals: Vital Signs Temp Pulse Pulse Resp BP BP Pulse Ox 05/07/23 08:30 98.1 F 75 18 160/82 95 05/07/23 05:13 98.8 F 74 16 195/98 96 05/07/23 02:00 72 05/06/23 23:30 72 16 188/88 97 05/06/23 21:28 98.5 F 85 16 159/83 97 05/06/23 20:00 88 18 177/99 95 05/06/23 18:21 62 20 255/127 96 05/06/23 14:21 97.9 F 61 18 238/109 97 Intake and Output 05/06/23 05/07/23 05/07/23 22:59 06:59 14:59 Other: Voiding Method Toilet # Voids 1 1 Weight 111.13 kg Results 05/07/23 08:00 05/07/23 08:00 Cardiac Enzymes 05/06/23 05/06/23 05/06/23 Range/Units 14:48 20:43 23:52 AST 48 (17-59) U/L Troponin I <0.012 <0.012 (0.000-0.034) ng/mL 05/07/23 Range/Units 08:00 AST 27 (17-59) U/L Troponin I (0.000-0.034) ng/mL CBC 05/06/23 05/07/23 Range/Units 14:48 08:00 WBC 8.4 8.5 (3.8-10.6) k/uL RBC 4.87 4.51 (4.30-5.90) m/uL Hgb 16.0 14.7 (13.0-17.5) gm/dL Hct 47.1 44.3 (39.0-53.0) % Plt Count 232 213 (150-450) k/uL Comprehensive Metabolic Panel 05/06/23 05/07/23 Range/Units 14:48 08:00 Sodium 136 L 135 L (137-145) mmol/L Potassium 4.4 4.1 (3.5-5.1) mmol/L Chloride 104 102 (98-107) mmol/L Carbon Dioxide 22 24 (22-30) mmol/L BUN 12 10 (9-20) mg/dL Creatinine 0.75 0.77 (0.66-1.25) mg/dL Glucose 118 H 140 H (74-99) mg/dL Calcium 9.1 8.8 (8.4-10.2) mg/dL AST 48 27 (17-59) U/L ALT 53 H 41 (4-49) U/L Alkaline Phosphatase 71 53 (38-126) U/L Total Protein 7.6 6.5 (6.3-8.2) g/dL Albumin 4.7 4.0 (3.5-5.0) g/dL Current Medications Generic Name Dose Route Start Last Admin Trade Name Freq PRN Reason Stop Dose Admin Amoxicillin/Clavulanate Potassium 1 each 05/07/23 00:30 05/07/23 08:38 Amoxic-Pot Clav 875-125mg 1 Each Tab PO 1 each Q12HR CATHERINE Administration Protocol Aspirin 81 mg 05/07/23 09:00 05/07/23 08:38 Aspirin 81 Mg PO 81 mg DAILY CATHERINE Administration Atorvastatin Calcium 80 mg 05/07/23 00:30 05/07/23 01:31 Atorvastatin 80 Mg Tab PO 80 mg HS CATHERINE Administration Hydromorphone HCl 1 mg 05/06/23 19:20 05/07/23 05:10 Hydromorphone 1 Mg/Ml 1 Ml Syringe IVP 1 mg Q4HR PRN Administration Pain Lisinopril 20 mg 05/07/23 09:00 05/07/23 08:38 Lisinopril 20 Mg Tab PO 20 mg DAILY CATHERINE Administration Metoprolol Tartrate 25 mg 05/07/23 00:30 05/07/23 08:38 Metoprolol Tartrate 25 Mg Tab PO 25 mg BID CATHERINE Administration Naloxone HCl 0.2 mg 05/06/23 19:20 Naloxone 0.4 Mg/Ml 1 Ml Vial IV Q2M PRN Opioid Reversal Ondansetron HCl 4 mg 05/06/23 19:20 Ondansetron 4 Mg/2 Ml Vial IVP Q8HR PRN Nausea And Vomiting Intake and Output 05/06/23 05/07/23 05/07/23 22:59 06:59 14:59 Other: Voiding Method Toilet # Voids 1 1 Weight 111.13 kg 05/07/23 08:00 05/07/23 08:00
[2023-05-07 15:46] VITALS: BP 167/89; PULSE 71; RESP 16
[2023-05-07 15:49] VITALS: TEMP 98.1
== END 2023-05-07 13:10 | disposition home or self-care (01) | DRG 305 ==
LOC: EC 14:09 → 3SCARD 19:22
PROVIDERS: ADMIT Internal Medicine; ATTEND Internal Medicine
DX: I16.0 Hypertensive urgency (principal); K03.81 Cracked tooth; K04.7 Periapical abscess without sinus; E78.00 Pure hypercholesterolemia, unspecified; G47.30 Sleep apnea, unspecified; M54.16 Radiculopathy, lumbar region; M43.16 Spondylolisthesis, lumbar region; I25.10 Atherosclerotic heart disease of native coronary artery without angina pectoris; I10 Essential (primary) hypertension; Z79.82 Long term (current) use of aspirin; Z79.02 Long term (current) use of antithrombotics/antiplatelets; Z79.899 Other long term (current) drug therapy; Z82.49 Family history of ischemic heart disease and other diseases of the circulatory system; Z95.5 Presence of coronary angioplasty implant and graft
CPT/HCPCS: 36415; 80053; 83735; 84100; 84484; 85025; 96374; 96375; 99285

== ENCOUNTER 2024-06-07 14:55 | Emergency (ER) | payer OTHER ==
[2024-06-07] MEDS: NAPROXEN 250 MG TAB PO STA (15:54)
--- NOTE | 2024-06-07 16:25 | ED ---
Lower Extremity Injury HPI - General Chief Complaint: Extremity Injury, Lower Stated Complaint: R leg pain Time Seen by Provider: 06/07/24 15:05 Source: patient Mode of arrival: ambulatory Limitations: no limitations - History of Present Illness Initial Comments: 59-year-old male presents emergency department reporting redness and swelling to the right lower extremity for the past 2 weeks. He states he woke up on a Thursday with swelling to the leg. He saw his primary care doctor on Thursday who placed him on antibiotics. He had no injury at that time. He reports that his symptoms started to improve. Then the patient accidentally fell onto his right knee and had worsening swelling and pain. He was seen in the clinic. They referred him here for an ultrasound to rule out DVT. No history of DVT. No chest pain or shortness of breath. Denies any fevers. No drainage from the site but does have significant swelling to the bursa. States that this has been chronic for the past 2 weeks. He has been ambulatory. No other alleviating, precipitating or modifying factors - Related Data Home Medications Medication Instructions Recorded Confirmed Ascorbic Acid [Vitamin C] 1,000 mg PO DAILY 08/09/21 05/06/23 lisinopriL [Zestril] 20 mg PO DAILY 08/09/21 05/06/23 Atorvastatin [Lipitor] 80 mg PO HS 05/06/23 05/06/23 Fish Oil/Dha/Epa [Fish Oil 1,200 1 cap PO DAILY 05/06/23 05/06/23 mg Fish Oil] Sildenafil Citrate 100 mg PO DAILY PRN 05/06/23 05/06/23 Turmeric Root Extract [Turmeric] 500 mg PO DAILY 05/06/23 05/06/23 Previous Rx's Medication Instructions Recorded Aspirin 81 mg PO DAILY #30 chew 02/06/19 Metoprolol Tartrate [Lopressor] 25 mg PO BID #60 tab 02/06/19 Nitroglycerin Sl Tabs [Nitrostat] 0.4 mg SUBLINGUAL Q5M PRN tab 10/06/19 Amoxic-Pot Clav 875-125Mg 1 each PO Q12HR #20 tab 05/07/23 [Augmentin 875-125] oxyCODONE HCL/ACETAMINOPHEN 1 tab PO Q4HR PRN 3 Days #18 tab 05/07/23 [Percocet 10-325 mg] Cephalexin [Keflex] 500 mg PO Q6HR #40 cap 06/07/24 Naproxen [EC-Naprosyn] 500 mg PO BID #30 tab 06/07/24 Allergies Allergy/AdvReac Type Severity Reaction Status Date / Time No Known Allergies Allergy Verified 06/07/24 15:06 Review of Systems ROS Statement: Those systems with pertinent positive or pertinent negative responses have been documented in the HPI. ROS Other: All systems not noted in ROS Statement are negative. Past Medical History Past Medical History: Coronary Artery Disease (CAD), Chest Pain / Angina, Hypertension, Sleep Apnea/CPAP/BIPAP Additional Past Medical History / Comment(s): . History of lumbar spondylolisthesis since high school with low back pain and lower extremity radiculopathy, History of Any Multi-Drug Resistant Organisms: None Reported Past Surgical History: Heart Catheterization With Stent, Tonsillectomy Additional Past Surgical History / Comment(s): "UPPP" for sleep apnea, stents x 4. Past Anesthesia/Blood Transfusion Reactions: No Reported Reaction Date of Last Stent Placement:: 08/09/21 Past Psychological History: No Psychological Hx Reported Smoking Status: Never smoker Past Alcohol Use History: Occasional Past Drug Use History: None Reported - Past Family History Mother Family Medical History: Cancer Additional Family Medical History / Comment(s): lung CA with thoracotomy Father Family Medical History: Myocardial Infarction ([place]) Additional Family Medical History / Comment(s): passed in 2007 General Exam Limitations: no limitations General appearance: alert, in no apparent distress Head exam: Present: atraumatic, normocephalic, normal inspection Cardiovascular Exam: Present: regular rate, normal rhythm, normal heart sounds. Absent: systolic murmur, diastolic murmur, rubs, gallop, clicks GI/Abdominal exam: Present: soft, normal bowel sounds. Absent: distended, ten derness, guarding, rebound, rigid Extremities exam: Present: other (Patient has significant prepatellar swelling to the right knee. There is an enlarged bursa. He does have approximately 70 degrees of flexion with minimal pain. No joint tenderness. No appreciable knee effusion. There is redness and swelling to the calf and superior posterior thigh. No ankle or) Neurological exam: Present: alert, oriented X3, CN II-XII intact Psychiatric exam: Present: normal affect, normal mood Course Vital Signs 06/07/24 06/07/24 15:01 17:19 Temperature 97.5 F L 98.1 F Pulse Rate 70 65 Respiratory 20 18 Rate Blood Pressure 175/81 158/79 O2 Sat by Pulse 98 99 Oximetry Medical Decision Making - Medical Decision Making Was pt. sent in by a medical professional or institution (JIMMY Rouse, INDUSTRIAL HYGIENE TECHNICIAN, urgent care, hospital, or custodial...) When possible be specific @ -Patient was sent in from the [facility] clinic Did you speak to anyone other than the patient for history (EMS, parent, family, police, friend...)? What history was obtained from this source @ -No Did you review nursing and triage notes (agree or disagree)? Why? @ -I reviewed and agree with nursing and triage notes Were old charts reviewed (outside hosp., previous admission, EMS record, old EKG, old radiological studies, urgent care reports/EKG's, custodial records)? Report findings @ -No old charts were reviewed Differential Diagnosis (chest pain, altered mental status, abdominal pain women, abdominal pain men, vaginal bleeding, weakness, fever, dyspnea, syncope, headache, dizziness, GI bleed, back pain, seizure, CVA, palpatations, mental health, musculoskeletal)? @ -Differential Musculoskeletal Muscular strain, contusion, ligament sprain, fracture, arthritis, septic arthritis, bursitis, cellulitis, muscle spasm, nerve compression, DVT, arterial occlusion, herpes zoster, electrolyte abnormality, tumor.... This is not meant to be in all inclusive list EKG interpreted by me (3pts min.). @ -Not done X-rays interpreted by me (1pt min.). @ -Yes and demonstrates prepatellar swelling. No joint effusion CT interpreted by me (1pt min.). @ -None done U/S interpreted by me (1pt. min.). @ -Yes and demonstrates no DVT What testing was considered but not performed or refused? (CT, X-rays, U/S, labs)? Why? @ -Needle aspiration was discussed with the patient however he refused What meds were considered but not given or refused? Why? @ -None Did you discuss the management of the patient with other professionals (professionals i.e. JIMMY Rouse, INDUSTRIAL HYGIENE TECHNICIAN, lab, RT, psych nurse, geriatric social work professor, marine plumber, teacher, ict customer support officer, pillowcase turner)? Give summary @ -No Was smoking cessation discussed for >3mins.? @ -No Was critical care preformed (if so, how long)? @ -No Were there social determinants of health that impacted care today? How? (Homelessness, low income, unemployed, alcoholism, drug addiction, transportation, low edu. Level, literacy, decrease access to med. care, [facility], rehab)? @ -No Was there de-escalation of care discussed even if they declined (Discuss DNR or withdrawal of care, Hospice)? DNR status @ -No What co-morbidities impacted this encounter? (DM, HTN, Smoking, COPD, CAD, Cancer, CVA, ARF, Chemo, Hep., AIDS, mental health diagnosis, sleep apnea, morbid obesity)? @ -None Was patient admitted / discharged? Hospital course, mention meds given and route, prescriptions, significant lab abnormalities, going to OR and other pertinent info. @ -Upon arrival patient seen and evaluated in room 31. Thorough history and physical exam was performed. Ultrasound was performed which was negative for DVT. X-ray demonstrated swelling to the prepatellar region. I did discuss I&D of the prepatellar bursa however patient refused due to risk of infection. The risks of not performing the procedure discussed with the patient he was agreeable to these risks. I offered admission for IV antibiotics as patient was already on outpatient antibiotics however he refused this as well. At this time patient will be prophylactically covered with Keflex 4 times daily. He is to avoid any trauma to the area. No kneeling. Keep the extremity iced and elevated. I recommend that he follow-up with the orthopedic surgeon for definitive treatment. [facility]. I did provide Dr. Collins's phone number. He is instructed to return immediately should he develop a fever or worsening pain. Patient agreeable and discharged in stable condition Undiagnosed new problem with uncertain prognosis? @ -No Drug Therapy requiring intensive monitoring for toxicity (Heparin, Nitro, Insulin, Cardizem)? @ -No Were any procedures done? @ -No Diagnosis/symptom? @Acute prepatellar bursitis, evaluation for DVT Acute, or Chronic, or Acute on Chronic? @ -Acute Uncomplicated (without systemic symptoms) or Complicated (systemic symptoms)? @ -Complicated Side effects of treatment? @ -No Exacerbation, Progression, or Severe Exacerbation? @ -No Poses a threat to life or bodily function? How? (Chest pain, [place], CA, pneumonia, PE, COPD, DKA, ARF, appy, cholecystitis, CVA, Diverticulitis, Homicidal, Suicidal, threat to staff... and all critical care pts) @ -No Disposition Clinical Impression: Right knee pain, Prepatellar bursitis, Fall Disposition: HOME SELF-CARE Condition: Stable Instructions (If sedation given, give patient instructions): Knee Bursitis (ED) Additional Instructions: Please take the antibiotics as they are instructed. You must follow-up with the orthopedist to have them evaluate your further and possibly drain your bursa to identify infection. No kneeling. Keep your leg elevated and iced. Return to the emergency department should you have increasing pain or develop a fever Prescriptions: Naproxen [EC-Naprosyn] 500 mg PO BID #30 tab Cephalexin [Keflex] 500 mg PO Q6HR #40 cap Is patient prescribed a controlled substance at d/c from ED?: No Referrals: [facility],Clinic [Primary Care Provider] - 1-2 days Baltazar Collins MD [STAFF PHYSICIAN] - 1-2 days Time of Disposition: 17:14
--- NOTE | 2024-06-07 16:31 | US ---
EXAMINATION TYPE: US venous doppler duplex LE RT DATE OF EXAM: 06/07/2024 3:51 PM COMPARISON: NONE CLINICAL INDICATION: Male, 59 years old with history of leg swelling, pain; leg swelling, no pain per patient. Warmth near knee. No hx DVT. Not on thinners TECHNIQUE: The lower extremity deep venous system is examined utilizing real time linear array sonog titi with graded compression, color doppler sonography, and spectral doppler. SIDE PERFORMED: Right FINDINGS: VESSELS IMAGED: Common Femoral Vein Deep Femoral Vein Greater Saphenous Vein * Femoral Vein Popliteal Vein Small Saphenous Vein * Proximal Calf Veins (* superficial vessels) Right Leg: Negative for DVT today. There is a 1.5cm area of mixed echogenicity in the groin, probabl e lymph node. Grayscale, color doppler, spectral doppler imaging performed of the deep veins of the lower extremiti es. IMPRESSION: 1. No evidence of deep vein thrombosis of the right lower extremity. 2. Normal-appearing right groin probable lymph node. [facility], Workstation: [id number], 06/07/2024 4:29 PM
--- NOTE | 2024-06-07 16:50 | XR ---
EXAMINATION TYPE: XR knee complete RT DATE OF EXAM: 06/07/2024 4:36 PM CLINICAL INDICATION: Male, 59 years old with history of fall, pain; [facility] COMPARISON: None. TECHNIQUE: XR knee complete RT; examined in Frontal, lateral and oblique projections. FINDINGS: No evidence of any acute osseous pathology, soft tissue swelling, or joint effusion is no joseph. Tricompartmental osteophyte formation involving the femoral condyles, tibial plateau and patella . Mild joint space narrowing. Prepatellar soft tissue edema. A fabella is present. IMPRESSION: 1. Prepatellar soft tissue edema without evidence of acute osseous pathology. 2. Mild tricompartmental osteoarthritic changes. [facility], , 06/07/2024 4:48 PM
[2024-06-07 17:22] VITALS: BP 158/79; PULSE 65; RESP 18; TEMP 98.1
== END 2024-06-07 17:22 | disposition home or self-care (01) ==
LOC: EC 14:55
DX: M70.41 Prepatellar bursitis, right knee (principal)
CPT/HCPCS: 99283